=== PATIENT | female | born 1980 | race Caucasian/White ===

== ENCOUNTER 2019-06-20 17:42 | Emergency (ER) | payer BC, MEDICAID, SELFPAY ==
[2019-06-20 17:43] VITALS: BP 117/72; PULSE 82; RESP 16; TEMP 36.6; O2SAT 100
--- NOTE | 2019-06-20 17:55 | ED.GENADULT ---
HPI - General Adult General Chief complaint: Upper Respiratory Infection Stated complaint: SOB/CHEST PAIN Time Seen by Provider: 06/20/19 17:58 Source: patient and RN notes reviewed Mode of arrival: ambulatory Limitations: no limitations History of Present Illness HPI narrative: This is a 38 years old female presents to the office for an evaluation of chest pain/shortness breathe since yesterday. Chest pain is intermittent yesterday however is more constant this morning. Chest pain lasts about an hour with shortness of breath. Denies any numbness or tingling or sweating during chest pain. Stated, she was not feeling well yesterday, woke up with headache and sore throat so she called her doctor who prescribed Augmentin for her. Admits to history of anxiety when she does have panic attack she has shortness of breath and chest pain in the past; but she does not remember having any panic attack yesterday or today. Denies sick contact. Related Data Home Medications Medication Instructions Recorded Confirmed alprazolam See Rx Instructions .ROUTE .COMPLEX 02/20/19 03/05/19 amoxicillin 06/20/19 Allergies Allergy/AdvReac Type Severity Reaction Status Date / Time buspirone Allergy Unknown FUZZY Verified 06/20/19 17:46 FEELING IN BRAIN/BODY NUMB/TWITCHING/DRY HEAVES lorazepam Allergy Unknown FUZZY Verified 06/20/19 17:46 FEELING IN BRAIN/BODY NUMB/TWITCHING/DRY HEAVES Review of Systems Review of Systems: Narrative: CONSTITUTIONAL: Denies fever, chills EYES: Denies visual changes, redness, discharge. ENT: Reports sinus headache, ears pain and sore throat yesterday; but not today CARDIOVASCULAR: Denies chest pain, palpitation, edema. RESPIRATORY: Denies dyspnea, wheezing. Reports chronic cough; contributed to smoking; nothing more than usual. GASTROINTESTINAL: Denies abdominal pain, vomiting, diarrhea. Reports nasuea before she ate; which went away after she eats. GENITOURINARY: Denies urinary symptoms SKIN: Denies rash MUSCULOSKELETAL: Denies acute back pain NEUROLOGIC: Denies lightheaded; reports dizziness at times; especially when she first wake up. [facility] Past Medical History Medical History Abnormal uterine bleeding Anxiety Bronchitis Chronic sinusitis H/O gastroesophageal reflux (GERD) (normal spontaneous vaginal delivery) x 4 Scoliosis Status post hysteroscopy Tobacco abuse Surgical History Surgical History H/O foot surgery X 3 History of bilateral tubal ligation Social History Social History Smoking status: Current every day smoker Alcohol intake: current Comments At time of signature, I agree with nursing past medical, surgical, social and family history. There is no relevant family history pertinent to the presenting complaint. Exam Narrative: Exam Narrative: GENERAL: This is a well-nourished, well-developed patient, in no apparent distress. EYES: Sclera clear/white. Vision is grossly intact. EARS: External ears normal, auditory canals clear and without drainage, TMs normal without perforation. Hearing grossly intact. NOSE: External nose normal with no obvious nasal discharge, nares without redness, no rhinorrhea. THROAT: Mucous membranes moist, posterior pharynx edematous, tonsils 2+ without exudative. NECK: Neck supple, non-tender without lymphadenopathy, masses or thyromegaly. CARDIOVASCULAR: Regular rate and rhythm without murmurs, gallops, or rubs. No chest wall tenderness RESPIRATORY: Speak full sentance. Clear to auscultation. Breath sounds equal bilaterally. No wheezes, rales, or rhonchi. GASTROINTESTINAL: Abdomen soft, non-tender, nondistended. Bowel sounds are active. No hepato-splenomegaly, or palpable masses. No guarding. SKIN: warm, intact with no suspicious lesions or
--- NOTE | 2019-06-20 18:02 | ECG_ITS ---
Measurements Intervals [place] Rate: 66 P: 26 NC: 122 QRS: 52 QRSD: 115 T: 38 QT: 386 QTc: 407 Interpretive Statements SINUS RHYTHM INTRAVENTRICULAR CONDUCTION DELAY BORDERLINE ECG Electronically Signed On 06-21-2019 7:04:28 CDT by Sekou Pagan D.O.
== END 2019-06-20 18:24 | disposition home or self-care (01) ==
PROVIDERS: Emergency Provider Nurse Practitioner; PCP Family Medicine
DX: R06.02 Shortness of breath (principal); F41.9 Anxiety disorder, unspecified; F17.200 Nicotine dependence, unspecified, uncomplicated; K21.9 Gastro-esophageal reflux disease without esophagitis; M41.9 Scoliosis, unspecified
CPT/HCPCS: 93005; 99213; G0463

== ENCOUNTER 2019-09-04 13:09 | Emergency (ER) | payer BC, MEDICAID, SELFPAY ==
--- NOTE | ~2019-09-04 | XR_ITS ---
EXAMINATION: XR ankle RT min 3V DATE: 09/04/2019 13:28 INDICATION: Lateral right ankle pain post twisting injury TECHNIQUE: Anteroposterior, oblique, mortise, and lateral views of the right ankle were obtained. COMPARISON: None. FINDINGS: Bone alignment is normal. There is a chronic collapsed osteochondral lesion along the medial aspect o f the talar dome which measures approximately 1.6 cm anteroposteriorly and 8 mm medial collateral the re appears be a residual small bone fragment within the defect, likely loose in situ. No fracture. Po stoperative change of prior first tarsal metatarsal arthrodesis with residual metallic fragments like ly from previously removed fixation screws. Remaining joint spaces are unremarkable. No ankle joint e ffusion. Soft tissue swelling about the lateral malleolus. IMPRESSION: 1. No acute osseous abnormality. 2. 16 x 8 mm chronic collapsed osteochondral lesion at the medial side of the talar dome with likely residual loose in situ bone fragment. Reviewed, dictated and finalized at location A. IMPRESSION: 1. No acute osseous abnormality. 2. 16 x 8 mm chronic collapsed osteochondral lesion at the medial side of the t alar dome with likely residual loose in situ bone fragment.
[2019-09-04 13:19] VITALS: BP 110/76; PULSE 75; RESP 16; TEMP 37.3; O2SAT 100
--- NOTE | 2019-09-04 13:31 | ED.LOWEXIN ---
HPI - Extremity Injury (Lower) General Chief Complaint: Extremity Injury, Lower Stated Complaint: right ankle injury Time Seen by Provider: 09/04/19 13:32 Source: patient and RN notes reviewed Mode of arrival: ambulatory Limitations: no limitations History of Present Illness HPI Narrative: This is a 38 years old female presented office for evaluation of right ankle injury since yesterday. She accidentally invertly rolled her ankle. Complained of immediate pain with sensation of popping when she walks on it. She claimed that her daughter is a health worker who advised her to get an x-ray to rule out fracture. Denies any other injury. She has been limping. She admits to multiple bunion surgery on the same foot however denies ankle fracture in the past. Related Data Home Medications Medication Instructions Recorded Confirmed alprazolam 0.5 mg PO TID PRN 02/20/19 09/04/19 Allergies Allergy/AdvReac Type Severity Reaction Status Date / Time buspirone Allergy Unknown FUZZY Verified 09/04/19 13:27 FEELING IN BRAIN/BODY NUMB/TWITCHING/DRY HEAVES lorazepam Allergy Unknown FUZZY Verified 09/04/19 13:27 FEELING IN BRAIN/BODY NUMB/TWITCHING/DRY HEAVES Review of Systems Review of Systems: Narrative: CONSTITUTIONAL: Denies feeling ill CARDIOVASCULAR: Denies chest injury RESPIRATORY: Denies dyspnea GASTROINTESTINAL: Denies nausea SKIN: Denies bruising MUSCULOSKELETAL: Reports right ankle pain with swelling NEUROLOGIC: Denies lightheaded PMFSH Past Medical History Medical History Abnormal uterine bleeding Anxiety Bronchitis Chronic sinusitis H/O gastroesophageal reflux (GERD) (normal spontaneous vaginal delivery) x 4 Scoliosis Status post hysteroscopy Tobacco abuse Surgical History Surgical History H/O foot surgery X 3 History of bilateral tubal ligation Social History Social History Smoking status: Current every day smoker Alcohol intake: current Comments At time of signature, I agree with nursing past medical, surgical, social and family history. There is no relevant family history pertinent to the presenting complaint. Exam Narrative: Exam Narrative: GENERAL: This is a well-nourished, well-developed patient, in no apparent distress. CARDIOVASCULAR: Regular rate and rhythm without murmurs, gallops, or rubs. RESPIRATORY: Clear to auscultation. Breath sounds equal bilaterally. No wheezes, rales, or rhonchi. NEURO: awake, alert, and oriented to person, place and time. There were no obvious focal neurologic abnormalities. EXTREMITIES: The right ankle is swollen and tender over the lateral aspect but the skin is intact and there is no ligamentous instability. There is no deformity. The foot and toes are warm and well-perfused. Sensation to pain and light touch is intact. Heal surgical scar noted on dorsal aspect of first metartarsal bone. Course Vital Signs Vital signs: Vital Signs Temperature 99.2 F 09/04/19 13:19 Pulse Rate 75 09/04/19 13:19 Respiratory Rate 16 09/04/19 13:19 Blood Pressure 110/76 09/04/19 13:19 Pulse Oximetry 100 09/04/19 13:19 Temperature 99.2 F 09/04/19 13:19 Pulse Rate 75 09/04/19 13:19 Respiratory Rate 16 09/04/19 13:19 Blood Pressure 110/76 09/04/19 13:19 Pulse Oximetry 100 09/04/19 13:19 MDM - Extremity Injury (Lower) MDM Narrative Medical decision making narrative: Discharge instructions reviewed with patient, as well as provided in writing per nursing staff. The instructions also include specific and strict return/GO TO THE ER as well as f/u information. All questions have been answered, and the patient* deny any further questions with discharge and discharge plan. Differential Diagnosis Differential diagnosis: L
== END 2019-09-04 13:55 | disposition home or self-care (01) ==
PROVIDERS: Emergency Provider Nurse Practitioner; PCP Family Medicine
DX: S93.401A Sprain of unspecified ligament of right ankle, initial encounter (principal); F41.9 Anxiety disorder, unspecified; K21.9 Gastro-esophageal reflux disease without esophagitis; F17.200 Nicotine dependence, unspecified, uncomplicated; X50.9XXA Other and unspecified overexertion or strenuous movements or postures, initial encounter
CPT/HCPCS: 73610; 99213; G0463

== ENCOUNTER 2019-12-12 15:07 | Outpatient (CLI) | payer BC, MEDICAID, SELFPAY ==
--- NOTE | ~2019-12-12 | US_ITS ---
EXAMINATION: US pelvic complete w TV DATE: 12/12/2019 15:45 INDICATION: Pelvic pain Comparison:No prior studies for comparison. TECHNIQUE: Multiple transabdominal and endovaginal sonographic images of the pelvis performed. FINDINGS: The uterus measures 9 x 4.3 x 5.8 cm. There is fluid in the endometrium. The endometrial co mplex measures 7 mm. The right ovary measures 1.5 x 1.4 x 1.1 cm. Left ovary not visualized. There are small follicles in each ovary. There is free fluid in the pelvis. There are no abnormal masses seen on either side. IMPRESSION: 1. Heterogeneous endometrium with small amount of fluid, although not significantly thickened. 2: Otherwise, unremarkable pelvic ultrasound. Reviewed, dictated and finalized at location B. IMPRESSION: 1. Heterogeneous endometrium with small amount of fluid, although not significa ntly thickened. 2: Otherwise, unremarkable pelvic ultrasound.
== END 2019-12-12 15:08 | disposition home or self-care (01) ==
PROVIDERS: PCP Family Medicine; Visit Provider Obstetrics & Gynecology
DX: R10.2 Pelvic and perineal pain (principal)
CPT/HCPCS: 76830; 76856

== ENCOUNTER 2020-01-23 14:22 | Emergency (ER) | payer MEDICAID, SELFPAY ==
--- NOTE | ~2020-01-23 | CT_ITS ---
EXAMINATION: CT abdomen pelvis w con DATE: 01/23/2020 15:39 INDICATION: Generalized abdominal pain. TECHNIQUE: Computed tomography (CT) of the abdomen and pelvis was performed with 100 mL Omnipaque 350 intravenous contrast. Automated exposure control and iterative reconstruction technique were employe d. The dose-length product was 209.35 mGy-cm. COMPARISON: CT abdomen and pelvis 11/06/2015 FINDINGS: The visualized portions of the lung bases demonstrate mild atelectasis. No pleural effusion . The heart size is normal. No pericardial effusion. The liver, gallbladder, pancreas, and adrenal gl ands are normal. Calcifications in the spleen are consistent with old granulomatous disease. Right ki dney is normal. There are cysts in left kidney measuring up to 8 mm. There are no dilated loops of johnathon wel. The appendix is normal. There are no pathologically enlarged lymph nodes. There is trace pelvic ascites. There is mild thoracic spondylosis. IMPRESSION: 1. No specific etiology for the patient's symptoms. Reviewed, dictated and finalized at location A.
[2020-01-23 14:34] VITALS: BP 115/62; PULSE 86; RESP 16; TEMP 36.4; O2SAT 100
--- NOTE | 2020-01-23 14:42 | ED.ABDPAIN ---
HPI - Abdominal Pain General Chief Complaint: Abdominal Pain Stated Complaint: Abd Pain, poss ovarian cysts Time Seen by Provider: 01/23/20 14:29 Source: patient and family Mode of arrival: ambulatory Limitations: no limitations History of Present Illness HPI narrative: 39 years old white female presents with lower abdominal pain like contraction started 5 days ago, Patient denies any aggravating or relieving factors. Patient denies any fever, chills, nausea, vomiting, diarrhea, constipation, urinary symptoms, vaginal bleeding or discharge. History of drug addiction, IBS, ovarian cyst. Patient taking Xanax for chronic anxiety, Patient smokes, denies drinking or using drugs. Related Data Home Medications Medication Instructions Recorded Confirmed alprazolam 0.5 mg PO TID PRN 02/20/19 09/25/19 Allergies Allergy/AdvReac Type Severity Reaction Status Date / Time buspirone Allergy Unknown FUZZY Verified 09/25/19 11:20 FEELING IN BRAIN/BODY NUMB/TWITCHING/DRY HEAVES lorazepam Allergy Unknown FUZZY Verified 09/25/19 11:20 FEELING IN BRAIN/BODY NUMB/TWITCHING/DRY HEAVES Review of Systems Review of Systems: Narrative: CONSTITUTIONAL: Denies fever, chills, or sweats. EYES: Denies visual changes, redness, or discharge. ENT: Denies rhinorrhea, congestion, sore throat, or otalgia. CARDIOVASCULAR: Denies chest pain, palpitations, or edema. RESPIRATORY: Denies cough or dyspnea. GASTROINTESTINAL: Denies abdominal pain, nausea, vomiting, or diarrhea. GENITOURINARY: Denies dysuria or hematuria. SKIN: Denies rash or itching. MUSCULOSKELETAL: Denies back pain, joint pain, or myalgia. NEUROLOGIC: Denies headache, numbness, or weakness. PSYCHIATRIC: Denies anxiety or depression. [facility] Past Medical History Medical History (Updated 01/23/20 @ 16:43 by Melony Hsu MD) Abnormal uterine bleeding Ankle sprain Anxiety Bronchitis Chronic sinusitis H/O gastroesophageal reflux (GERD) (normal spontaneous vaginal delivery) x 4 Right ankle pain Scoliosis Status post hysteroscopy Tobacco abuse Surgical History Surgical History H/O foot surgery X 3 History of bilateral tubal ligation Social History Social History Smoking status: Current every day smoker Alcohol intake: current Gender identity (if verbalized by the patient): Female Exam Narrative: Exam Narrative: General appearance: Well-developed, well-nourished Skin: Normal color Head: Normocephalic, nontraumatic Eyes: Clear conjunctiva ENT: Oropharynx normal, ears normal, nose normal Neck: Supple, nontender Chest and respiratory: Airway patent, no respiratory distress, no accessory muscle use Heart: Regular rate/rhythm Abdomen: Soft, severe tenderness lower abdomen bilaterally, no organomegaly, quiet bowel sounds Vascular: Normal peripheral pulses, normal capillary refill. Musculoskeletal: Normal range of motion, nontender back Neurologic: Alert and oriented ?3, DCS ENGINEER is normal as tested, no gross motor deficit Course Course Emergency Course: Stable Reevaluation(s) Reevaluation #1: Patient still needs that she is planning to see Dr. Ohara tomorrow. Patient is not happy about her abdominal pain without a specific diagnosis. Vital Signs Vital signs: Vital Signs Temperature 36.4 C 01/23/20 14:34 Pulse Rate 86 01/23/20 14:34 Respiratory Rate 16 01/23/20 14:34 Blood Pressure 115/62 01/23/20 14:34 Pulse Oximetry 100 01/23/20 14:34 Temperature 36.4 C 01/23/20 14:34 Pulse Rate 86 01/23/20 14:34 Respiratory Rate
[2020-01-23] MEDS: SODIUM CHLORIDE 0.9% IV 1,000 ML 999 ML IV CONT (14:46)
[2020-01-23 14:58] LABS: Basophils Absolute Auto 0.1 K/mm3 (0.0-0.1); Basophils Percent Auto 0.3 % (0.2-1.2); Eosinophils Percent Auto 0.1 % (0-4.4); Hematocrit 43.9 % (37.0-47.0); Hemoglobin 15.1 g/dL (12.0-15.0); Immature Granulocyte Absolute 0.07 K/mm3 (0.00-0.031); Immature Granulocyte Percent A 0.4 % (0-0.5); Lymphocytes Absolute Auto 2.21 K/mm3 (0.9-3.2); Lymphocytes Percent Auto 13.4 % (18.3-44.2); Mean Corpuscular HGB Conc 34.4 g/dl (32-36); Mean Corpuscular Hemoglobin 33.8 pg (26-34); Mean Corpuscular Volume 98.2 fl (80-100); Mean Platelet Volume 9.2 fl (7.4-10.4); Monocytes Absolute Auto 0.6 K/mm3 (0.1-0.6); Monocytes Percent Auto 3.4 % (2.6-8.5); Neutrophils Absolute Auto 13.6 K/mm3 (1.3-6.7); Neutrophils Percent Auto 82.4 % (45.5-73.1); Platelet Count Result 276 k/mm3 (150-375); Red Blood Count 4.47 M/mm3 (4.2-5.4); Red Cell Distribution Width 12.4 % (11.5-14.5); White Blood Count 16.5 K/mm3 (4.5-10.0)
[2020-01-23 15:05] LABS: Add Urine Microscopic? YES; Appearance Urine Clear (Clear); Bacteria Urine Trace /hpf; Bilirubin Urine Negative (Negative); Blood Urine Negative (Negative); Color Urine Yellow (Yellow); Glucose Urine UA Negative (Negative); Ketones Urine Negative (Negative); Leukocyte Esterase Ur 1+ LEU/UL (Negative); Mucus Urine Rare /lpf; Nitrate Urine Negative (Negative); Protein Urine Negative (Negative); RBC Urine 0-2 /hpf (0-2); Specific Grav Ur 1.012 (1.001-1.035); Squamous Epithelial Cell Urine Many /hpf (Few); Urobilinogen Urine Negative mg/dL (<2.0); WBC Urine 0-3 /hpf
[2020-01-23 15:09] LABS: Alanine Aminotransferase 16 U/L (4-35); Albumin Level 4.3 g/dL (3.5-5.1); Alkaline Phosphatase 61 U/L (38-126); Anion Gap 8 mmol/L (8-16); Aspartate Amino Transferase 26 U/L (14-36); Bilirubin,Total 0.5 mg/dL (0.2-1.3); Blood Urea Nitrogen 16 mg/dL (7-17); Calcium 9.1 mg/dL (8.4-10.2); Carbon Dioxide 26 mmol/L (22-30); Chloride 106 mmol/L (98-107); Estimated CRCL calculation 88 ml/min; Estimated Glomerular Filt Rate > 60; Glucose 83 mg/dL (65-105); Lipase 127 U/L (23-300); Potassium 3.1 mmol/L (3.4-5.0); Sodium 140 mmol/L (137-145)
== END 2020-01-23 17:03 | disposition home or self-care (01) ==
PROVIDERS: Emergency Provider Emergency Medicine; PCP Family Medicine
DX: R10.30 Lower abdominal pain, unspecified (principal); F41.9 Anxiety disorder, unspecified
CPT/HCPCS: 36415; 74177; 80053; 81001; 81025; 83690; 85025; 99284; J7030; Q9967

== ENCOUNTER 2020-05-01 08:47 | Emergency (ER) | payer OTHER, SELFPAY ==
[2020-05-01 08:59] VITALS: BP 131/88; PULSE 97; RESP 17; TEMP 36.5; O2SAT 100
[2020-05-01 09:20] LABS: Basophils Percent Auto 0.3 % (0.2-1.2); Eosinophils Percent Auto 0.3 % (0-4.4); Hematocrit 42.1 % (37.0-47.0); Hemoglobin 14.7 g/dL (12.0-15.0); Immature Granulocyte Absolute 0.05 K/mm3 (0.00-0.031); Immature Granulocyte Percent A 0.4 % (0-0.5); Lymphocytes Absolute Auto 2.77 K/mm3 (0.9-3.2); Lymphocytes Percent Auto 23.7 % (18.3-44.2); Mean Corpuscular HGB Conc 34.9 g/dl (32-36); Mean Corpuscular Hemoglobin 33.6 pg (26-34); Mean Corpuscular Volume 96.1 fl (80-100); Mean Platelet Volume 9.2 fl (7.4-10.4); Monocytes Absolute Auto 0.6 K/mm3 (0.1-0.6); Neutrophils Absolute Auto 8.2 K/mm3 (1.3-6.7); Neutrophils Percent Auto 70.3 % (45.5-73.1); Platelet Count Result 296 k/mm3 (150-375); Red Blood Count 4.38 M/mm3 (4.2-5.4); Red Cell Distribution Width 12.2 % (11.5-14.5); White Blood Count 11.7 K/mm3 (4.5-10.0)
[2020-05-01 09:33] LABS: Alanine Aminotransferase 15 U/L (4-35); Albumin Level 4.2 g/dL (3.5-5.1); Alkaline Phosphatase 56 U/L (38-126); Anion Gap 6 mmol/L (8-16); Aspartate Amino Transferase 24 U/L (14-36); Bilirubin,Total 0.7 mg/dL (0.2-1.3); Blood Urea Nitrogen 15 mg/dL (7-17); Carbon Dioxide 25 mmol/L (22-30); Chloride 106 mmol/L (98-107); Estimated CRCL calculation 74 ml/min; Estimated Glomerular Filt Rate > 60; Glucose 85 mg/dL (65-105); Lipase 78 U/L (23-300); Potassium 3.9 mmol/L (3.4-5.0); Sodium 137 mmol/L (137-145)
[2020-05-01] MEDS: SODIUM CHLORIDE 0.9% IV 1,000 ML 999 ML IV CONT (09:50)
[2020-05-01 09:52] LABS: Add Urine Microscopic? NO; Appearance Urine Clear (Clear); Bilirubin Urine Negative (Negative); Blood Urine Negative (Negative); Color Urine Yellow (Yellow); Glucose Urine UA Negative (Negative); Ketones Urine Negative (Negative); Leukocyte Esterase Ur Negative LEU/UL (Negative); Mucus Urine Rare /lpf; Nitrate Urine Negative (Negative); Protein Urine Negative (Negative); RBC Urine 0-2 /hpf (0-2); Specific Grav Ur 1.009 (1.001-1.035); Squamous Epithelial Cell Urine Few /hpf (Few); Urobilinogen Urine Negative mg/dL (<2.0); WBC Urine 0-3 /hpf
--- NOTE | 2020-05-01 09:54 | ED.ABDPAIN ---
HPI - Abdominal Pain General Chief Complaint: Abdominal Pain Stated Complaint: ABD Pain/Cramping Time Seen by Provider: 05/01/20 09:05 Source: patient, family, old records reviewed and other (Cosmetic Sales Assistant) Mode of arrival: ambulatory Limitations: no limitations History of Present Illness HPI narrative: Patient is a 39-year-old female who presents with uterine cramping patient has had the symptoms since having a D&C in February 2019 has been followed by Dr. Ohara for this was advised to have partial hysterectomy opted not to. Patient has had intermittent bouts of cramping sometimes the cramping lasts for less than a day other times it can last up to a week patient notes that this exacerbation is similar to others patient on arrival to emergency department does not appear distressed but is uncomfortable appearing patient denies vomiting diarrhea vaginal bleeding discharge urinary symptoms. Patient is accompanied by her . Patient has taken ibuprofen with no improvement. Patient has seen Dr. Ohara for this has had unremarkable ultrasound has also been seen in the emergency department for this the last of which was December of this year had negative CAT scan of the abdomen and pelvis. Related Data Home Medications Medication Instructions Recorded Confirmed alprazolam 0.5 mg PO TID PRN 02/20/19 09/25/19 Allergies Allergy/AdvReac Type Severity Reaction Status Date / Time buspirone Allergy Unknown FUZZY Verified 05/01/20 08:59 FEELING IN BRAIN/BODY NUMB/TWITCHING/DRY HEAVES lorazepam Allergy Unknown FUZZY Verified 05/01/20 08:59 FEELING IN BRAIN/BODY NUMB/TWITCHING/DRY HEAVES Review of Systems Review of Systems: All systems reviewed & are unremarkable except as noted in HPI and below PMFSH Past Medical History Medical History (Updated 05/01/20 @ 10:52 by Dylon Valderrama PA-C) Abnormal uterine bleeding Ankle sprain Anxiety Bronchitis Chronic sinusitis H/O gastroesophageal reflux (GERD) (normal spontaneous vaginal delivery) x 4 Right ankle pain Scoliosis Status post hysteroscopy Tobacco abuse Surgical History Surgical History H/O foot surgery X 3 History of bilateral tubal ligation Social History Social History Smoking status: Current every day smoker Alcohol intake: current Gender identity (if verbalized by the patient): Female Exam Narrative: Exam Narrative: GENERAL: Well-appearing, well-nourished, uncomfortable and in no acute distress. HEAD: Normocephalic, atraumatic. EYES: PERRLA and EOMI. ENT: Nares clear, no rhinorrhea or epistaxis. Mucous membranes moist. CHEST: Clear to auscultation. No respiratory distress. No wheezes rales or rhonchi HEART: Regular rate and rhythm. No murmur heard. Normal peripheral pulses. ABDOMEN: Soft, tenderness in the lower quadrants of the abdomen, nondistended EXTREMITIES: Normal range of motion. No edema. SKIN: Warm, dry, no rash. NEURO: No focal deficits. Alert and oriented x3. PSYCH: Normal mood and affect. Course Course Emergency Course: Patient was evaluated in the emergency department for what is described as chronic uterine contractions at this point patient is requesting to have hysterectomy patient had called her jury consultant this morning was instructed to come to emergency department patient on arrival was uncomfortable was evaluated was given medications for pain patient had some improvement patient was advised to continue to follow with her specialist is aware of the recommendations and discussion with the specialist patient agrees with this plan patient will be discharged home for further evaluation and reevaluation by her jury consultant Dr. Ohara patient was hydrated and given medications for pain in the emergency department. Consultations Consultation #1: Discussed case with
[2020-05-01] MEDS: MORPHINE SULFATE (*CRX) 4 MG/ML INJ IV PUSH (10:00)
[2020-05-01 10:36] VITALS: BP 128/89; PULSE 88; RESP 15; O2SAT 97
[2020-05-01 11:10] VITALS: BP 106/67; PULSE 69; RESP 18; O2SAT 100
== END 2020-05-01 11:11 | disposition home or self-care (01) ==
PROVIDERS: Emergency Provider Emergency Medicine; PCP Family Medicine
DX: R10.9 Unspecified abdominal pain (principal); F17.210 Nicotine dependence, cigarettes, uncomplicated; K21.9 Gastro-esophageal reflux disease without esophagitis; F41.9 Anxiety disorder, unspecified
CPT/HCPCS: 36415; 80053; 81003; 83690; 85025; 96361; 96374; 99284; J2270; J7030

== ENCOUNTER → 2020-05-30 01:53 | Outpatient (CLI) | payer OTHER, SELFPAY ==
[2020-05-31 08:28] LABS: SARS-CoV-2 RNA PCR Negative
== END ==
PROVIDERS: PCP Family Medicine; Visit Provider Obstetrics & Gynecology Gynecology
DX: Z01.812 Encounter for preprocedural laboratory examination (principal); Z20.822 Contact with and (suspected) exposure to COVID-19
CPT/HCPCS: 86850; 86900; 86901; C9803; U0003; U0005

== ENCOUNTER 2020-05-30 07:39 | Outpatient (CLI) | payer OTHER, SELFPAY | END 2020-05-30 07:40 | disposition home or self-care (01) | PROVIDERS: PCP Family Medicine; Visit Provider Obstetrics & Gynecology Gynecology | DX: G89.29 Other chronic pain (principal); R10.2 Pelvic and perineal pain; Z01.818 Encounter for other preprocedural examination | CPT/HCPCS: 36415; 86850; 86900; 86901 ==

== ENCOUNTER 2020-06-02 01:21 | Day surgery (SDC) | payer OTHER, SELFPAY ==
[2020-05-27 08:17] VITALS: BMI 21.7
[2020-06-02] VITALS (13 sets, daily range): BP systolic 101–116; BP diastolic 62–78; PULSE 64–87; RESP 10–24; TEMP 36.2–37.1; O2SAT 99–100
[2020-06-02] MEDS: ACETAMINOPHEN 500 MG TABLET 1000 MG PO (06:45)
[2020-06-02] MEDS: KETOROLAC 15 MG/ML VIAL (*BKC) IV PUSH (06:45)
--- NOTE | 2020-06-02 06:47 | WPDANESEPPF ---
Anes - Initial Pre Proc Eval Procedure: Operation Date: 06/02/20 07:30 Proposed Procedures p Total Vaginal Hysterectomy - Magali Ohara MD Date/Time: 06/02/20 06:47 Surgeon: Magali Ohara MD Pre Op Diagnosis: Post Ablation Pain Patient Data Age: 39 Gender: F Height: 1.57 m Weight: 54 kg Allergies Allergy/AdvReac Type Severity Reaction Status Date / Time buspirone AdvReac Intermediate FUZZY Verified 05/27/20 08:16 FEELING IN BRAIN/BODY NUMB/TWITCHING/DRY HEAVES lorazepam AdvReac Intermediate FUZZY Verified 05/27/20 08:16 FEELING IN BRAIN/BODY NUMB/TWITCHING/DRY HEAVES Home Medications Medication Instructions Recorded Confirmed Type alprazolam 0.5 mg PO TID PRN 02/20/19 05/27/20 History ibuprofen 200 mg PO Q6H PRN 05/27/20 05/27/20 History Patient hx anesthesia problems: none Family hx anesthesia problems: none [facility] Past Medical History Medical History (Updated 05/02/20 @ 00:00 by Milvia Chapa) Abnormal uterine bleeding Ankle sprain Anxiety Bronchitis Chronic sinusitis H/O gastroesophageal reflux (GERD) (normal spontaneous vaginal delivery) x 4 Right ankle pain Scoliosis Status post hysteroscopy Tobacco abuse Surgical History Surgical History H/O foot surgery X 3 History of bilateral tubal ligation Social History Social History Smoking packs per day: 1 Smoking cigarettes per day: 20.0 Years smoked: 24 Smoking pack-years: 24.00 Smoking status: Current every day smoker Tobacco type: cigarettes Alcohol intake: current Living arrangements: with family Gender identity (if verbalized by the patient): Female Spiritual care concerns: No Anes - Eval Final PreProcedure Day of Procedure 06/02/20 06:47 Patient weight: overweight Heart: regular rate and rhythm Lungs: clear to auscultation and normal air movement Airway: Mallampati scale class II Neurological: alert and oriented Last oral intake: >/= 8 hours ASA classification: II Emergent: no Anesthetic plan: proceed Anesthesia type and monitoring: general ETT Informed Consent: The patient's anesthetic plan and its attendant risks and benefits were discussed with the patient/family/POA. Questions were solicited and answers provided to the satisfaction of the patient/family/POA.
[2020-06-02] MEDS: LACTATED RINGERS 1,000 ML 30 ML IV CONT ×2 (06:50→08:40)
--- NOTE | 2020-06-02 07:11 | WPDHPUPDATE1 ---
History and Physical Update Update Date/Time: 06/02/20 07:11 History and Physical has been reviewed, including an updated exam of the patient. There are NO changes in the patient's condition. Risks, benefits, and alternatives have been discussed and questions answered. Patient agrees to proceed with procedure.
--- NOTE | 2020-06-02 07:12 | PM.IMHP ---
H&P: HPI History of Present Illness Date/Time: 06/02/20 07:12 Chief Complaint: cyclic pelvic pain Narrative: Khadra Carvajal is a 39 year old female A1 here with persistent severe cyclic pain post ablation. Patient with Melanie ablation 03/15. Onset of severe cyclic pain shortly after. She has been to the ER several times as well as the office. Ultrasound showed fluid in the endometrium with lining up to 7 mm yet she has had no bleeding since ablation. Reviewed options with patient and she has decided to proceed with hysterectomy. Plan TV[facility]. Risks of infection, bleeding, injury to internal organs (alexander. bladder, bowel, ureters, tubes, and ovaries)reviewed. Aware this will be under general anesthesia. Agrees to proceed. Review of Systems Review of Systems: Narrative: not repeated day of surgery; patient states no changes in status PMFSH Past Medical History Medical History (Updated 06/02/20 @ 07:16 by Magali Ohara MD) Abnormal uterine bleeding Ankle sprain Anxiety Bronchitis Chronic sinusitis H/O gastroesophageal reflux (GERD) (normal spontaneous vaginal delivery) x 4 Right ankle pain Scoliosis Status post hysteroscopy Tobacco abuse Surgical History Surgical History (Updated 06/02/20 @ 07:16 by Magali Ohara MD) H/O foot surgery X 3 History of bilateral tubal ligation S/P endometrial ablation Social History Social History Smoking packs per day: 1 Smoking cigarettes per day: 20.0 Years smoked: 24 Smoking pack-years: 24.00 Smoking status: Current every day smoker Tobacco type: cigarettes Alcohol intake: current Living arrangements: with family Gender identity (if verbalized by the patient): Female Spiritual care concerns: No Meds Home Medications and Allergies Home Medications Medication Instructions Recorded Confirmed Type alprazolam 0.5 mg PO TID PRN 02/20/19 05/27/20 History ibuprofen 200 mg PO Q6H PRN 05/27/20 05/27/20 History Allergies Allergy/AdvReac Type Severity Reaction Status Date / Time buspirone AdvReac Intermediate FUZZY Verified 05/27/20 08:16 FEELING IN BRAIN/BODY NUMB/TWITCHING/DRY HEAVES lorazepam AdvReac Intermediate FUZZY Verified 05/27/20 08:16 FEELING IN BRAIN/BODY NUMB/TWITCHING/DRY HEAVES Exam Const: General: healthy appearing and comfortable Resp: Effort & Inspection: normal respiratory effort Auscultation: clear to auscultation bilaterally Cardio: Rate: regular rate Rhythm: regular rhythm GI: GI Palp: No abdominal tenderness and No Palpable mass present : External Female Exam: normal external appearance Speculum Exam - Vagina: normal appearance of the vagina Speculum Exam - Cervix: normal appearance of the cervix Bimanual exam- vagina & uterus: normal bimanual exam Assessment and Plan Assessment and plan (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
[2020-06-02] MEDS: ceFAZolin 2 GM/D5W 50 ML 2 GM/50 ML BAG IVPB (07:25)
[2020-06-02] MEDS: LIDO 1%/EPINEPHRINE 1:100,000 50 ML VIAL 10 ML INFILTRATE (07:25)
--- NOTE | 2020-06-02 08:32 | PM.PROC ---
Procedure Note - Detailed Date of procedure: 06/02/20 Pre-op diagnosis: Post Ablation Pain Post-op diagnosis: same Procedure performed: TV Description of procedure: The patient was taken to the operating room and placed in the dorsal lithotomy position under general anesthesia. She was prepped and draped in usual sterile fashion. Short weighted speculum was placed posteriorly and Jc retractor was placed anteriorly. The cervix was grasped with a tenaculum and the vaginal mucosa was injected circumferentially around the cervix. The scalpel was used to circumferentially incise the vaginal mucosa around the cervix. The vaginal mucosa was dissected off anteriorly and posteriorly using sharp and blunt dissection. The Mike retractors placed intraperitoneally and the posterior speculum was changed to the long curved weighted speculum. The Z clamps are used throughout the procedure. The uterosacral and cardinal ligaments were serially clamped transected and suture ligated with 0 Vicryl. They were tagged for future use. The uterine vessels are clamped transected and suture ligated. The posterior fundus is grasped with piercing towel clamps and delivered through the cul-de-sac. The utero-ovarian ligaments are doubly clamped transected and suture ligated with 0 Vicryl the tubal portion of the ligament was not included in the clamps therefore these were separately clamped transected and suture ligated with 0 Vicryl. The uterus is fully removed. All pedicles had good hemostasis. The peritoneum was grasped anteriorly with a peon and the peritoneum was grasped posteriorly with a peon after the posterior speculum was changed to the short weighted speculum. The peritoneum was closed using 0 Ethibond in a pursestring fashion incorporating the previously tagged uterosacral and cardinal ligaments as well as the anterior and posterior peritoneum. Good hemostasis is noted and all tags were cut out. The vaginal mucosa is then closed using 0 Vicryl in a running locked fashion. Packing coated with Premarin cream is placed vaginally. Wyatt was left in place. Sponge, instrument, and needle counts are correct per the OR staff. The patient is awakened from anesthesia and taken to recovery in stable condition. Anesthesia: GETA Surgeon: Magali Ohara MD Estimated blood loss (mL): 25 Drains: Yes (ywatt) Packing: Yes (vaginal) Pathology: yes (uterus) Complications: No immediate complications Condition: stable Disposition: PACU Findings: normal appearing uterus, tubes, and ovaries
--- NOTE | 2020-06-02 08:37 | PM.DS ---
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 Status: Acute (2) History of total vaginal hysterectomy (TVH): Code(s): Z90.710 - Acquired absence of both cervix and uterus Status: Acute DS: Summary Hospital Course Reason for hospitalization: post op care Hospital Course: tolerating regular diet, voiding, and ambulating before discharge Status at Discharge Functional status at discharge: independent ambulation Overall status at discharge: patient is progressing back to baseline Time Spent with Patient Time attestation: Total time spent providing and/or coordinating discharge services: DS: Data Data Completed and Pending Pending studies at discharge: Pending at discharge 06/02/20 08:18 Surgical [PTH] Routine Discharge Plan Discharge Attending physician on discharge: Magali Ohara Discharging Clinician: Magali Ohara Anticipated Discharge Date/Time: 06/03/20 07:42 Patient Disposition: Home, Self-Care Activity: may shower, may drive after 2 weeks and pelvic rest Diet: regular Discharge Instructions: pelvic rest for 6 weeks, no driving x 2 wks, no lifting >10 pounds Patient Instructions: Vaginal Hysterectomy (DC) Stand Alone Forms: General Discharge Instructions Follow-up/Referrals: Magali Ohara MD [Physician] - 1 Week Discharge Medications: Continued alprazolam 0.5 mg tablet 0.5 mg PO TID PRN (Reason: Anxiety) RF: 0 Changed ibuprofen 200 mg Tablet 600 mg PO Q6H PRN (Reason: Pain) Qty: 0 RF: 0 Date of admission: 06/02/20 09:44 Primary Care Provider: JohnBrittany Admitting Provider: Magali Ohara Attending physician on admission: Magali Ohara Condition: Stable
[2020-06-02] MEDS: fentaNYL CITRATE INJ (*CRX) 100 MCG/2 ML VIAL 25 MCG IV PUSH ×6 (08:50→09:13)
[2020-06-02] MEDS: MIDAZOLAM HCL (*CRX) 2 MG/2 ML VIAL IV PUSH ×2 (08:50→09:06)
[2020-06-02] MEDS: MORPHINE SULFATE (*CRX) 2 MG/ML INJ IV PUSH ×2 (10:27→14:56)
[2020-06-02] MEDS: DEXTROSE 5%/LACTATED RINGERS 1,000 ML 125 ML IV CONT ×2 (10:28→19:52)
--- NOTE | 2020-06-02 11:46 | PC.NURSE ---
0948-This patient, Khadra Carvajal, was admitted to OB 2nd Floor Room 289-00. Patient/family oriented to hospital policies and general routines including ID bracelet, bed and alarms, visiting hours, pain management, procedures, bathroom and other care routines, personal items, smoking policy, room service/diet, and visiting hours. Information on how to activate the Rapid Response Team has been discussed. Patient/Family are encouraged to report perceived risks to care and to ask questions if they do not understand what they are told or what they should do.
[2020-06-02] MEDS: ONDANSETRON INJ 4 MG/2 ML VIAL IV PUSH (13:35)
[2020-06-02] MEDS: KETOROLAC 30 MG/ML VIAL (*BKC) IV PUSH ×3 (13:35→19:58)
[2020-06-03 05:10] VITALS: BP 101/67; PULSE 65; RESP 16; TEMP 36.9; O2SAT 99
[2020-06-03 05:40] LABS: Basophils Percent Auto 0.2 % (0.2-1.2); Eosinophils Absolute Auto 0.1 K/mm3 (0-0.3); Eosinophils Percent Auto 0.5 % (0-4.4); Hematocrit 34.2 % (37.0-47.0); Hemoglobin 11.6 g/dL (12.0-15.0); Immature Granulocyte Absolute 0.05 K/mm3 (0.00-0.031); Immature Granulocyte Percent A 0.4 % (0-0.5); Lymphocytes Absolute Auto 3.99 K/mm3 (0.9-3.2); Lymphocytes Percent Auto 32.6 % (18.3-44.2); Mean Corpuscular HGB Conc 33.9 g/dl (32-36); Mean Corpuscular Hemoglobin 33.4 pg (26-34); Mean Corpuscular Volume 98.6 fl (80-100); Mean Platelet Volume 9.3 fl (7.4-10.4); Monocytes Absolute Auto 0.8 K/mm3 (0.1-0.6); Monocytes Percent Auto 6.1 % (2.6-8.5); Neutrophils Absolute Auto 7.4 K/mm3 (1.3-6.7); Neutrophils Percent Auto 60.2 % (45.5-73.1); Platelet Count Result 188 k/mm3 (150-375); Red Blood Count 3.47 M/mm3 (4.2-5.4); Red Cell Distribution Width 12.3 % (11.5-14.5); White Blood Count 12.3 K/mm3 (4.5-10.0)
--- NOTE | 2020-06-03 07:40 | PM.GYNPNOP ---
SOLE POLISHER - A/P Assessment and plan (1) History of total vaginal hysterectomy (TVH): Code(s): Z90.710 - Acquired absence of both cervix and uterus Status: Acute Assessment and Plan: Doing well. DC home. OK with motrin and tylenol. Postoperative Procedures: Procedures Operation Date: 06/02/20 07:30 Actual Procedures Side Surgeon p Total Vaginal Hysterectomy Not Applicable Magali Ohara MD Time Spent With Patient Time: Total time spent is greater than 50% in coordination of care (as documented) at patient's floor/unit and/or counseling patient: Time with patient: less than 15 minutes SOLE POLISHER- PN:Subj Post-Op Subjective Date/time seen: 06/03/20 07:40 Subjective: patient reports feeling better and pain is well controlled Exam GI: Inspection: normal to inspection GI Palp: Yes abdominal tenderness (mild) SOLE POLISHER - PN: Obj Data Vital Signs Vital Signs: Vital Signs - 24 hr 06/02/20 08:40 06/02/20 08:55 06/02/20 09:10 Temperature 97.8 F Pulse Rate 87 84 79 Respiratory Rate 15 18 15 Blood Pressure 106/78 109/72 113/73 Pulse Oximetry 100 100 100 06/02/20 09:25 06/02/20 10:15 06/02/20 10:50 Temperature 97.1 F L Pulse Rate 83 71 69 Respiratory Rate 10 L 24 H 24 H Blood Pressure 106/72 105/63 110/70 Pulse Oximetry 100 100 100 06/02/20 11:53 06/02/20 12:48 06/02/20 13:18 Temperature 98.3 F 97.8 F 98.7 F Pulse Rate 75 Respiratory Rate 24 H Blood Pressure 105/68 Pulse Oximetry 100 06/02/20 14:15 06/02/20 19:50 06/02/20 23:45 Temperature 97.8 F 98.3 F 98.5 F Pulse Rate 70 65 64 Respiratory Rate 20 16 16 Blood Pressure 112/65 101/62 105/65 Pulse Oximetry 100 100 99 06/03/20 05:10 Temperature 98.4 F Pulse Rate 65 Respiratory Rate 16 Blood Pressure 101/67 Pulse Oximetry 99 Intake/Output Intake/Output: Intake & Output 05/31/20 06/01/20 06/02/20 06/03/20 23:59 23:59 23:59 23:59 Intake Total 1940 500 Output Total 1900 600 Balance 40 -100 Meds/Results Medications: Active Medications Generic Name Dose Route Start Last Admin Trade Name Freq PRN Reason Stop Dose Admin Acetaminophen 1,000 mg 06/02/20 09:44 Acetaminophen 500 Mg Tablet PO Q6H PRN Mild Pain (1-3) or Fever Acetaminophen 1,000 mg in 100 mls @ 400 mls/hr 06/02/20 09:44 06/02/20 12:48 Ofirmev 1,000 Mg Ivpb IVPB 06/03/20 09:45 400 mls/hr Q6-8H PRN Administration pain (1-3) Ibuprofen 600 mg 06/02/20 09:44 Ibuprofen 600 Mg Tablet PO Q6H PRN Cramping Ketorolac Tromethamine 30 mg 06/02/20 09:44 06/02/20 19:58 Ketorolac 30 Mg/Ml Vial (*Bkc) IV PUSH 06/07/20 09:45 30 mg Q6H PRN Administration Pain Rated 4-6 Morphine Sulfate 2 mg 06/02/20 10:08 06/02/20 14:56 Morphine Sulfate (*Crx) 2 Mg/Ml Inj IV PUSH 2 mg Q2H PRN Administration Pain Rated 7-10 Naloxone HCl 0.1 mg 06/02/20 09:44 Naloxone Hcl 0.4 Mg/Ml Vial IV PUSH Q2M PRN Respiratory rate less than 10 Ondansetron HCl 4 mg 06/02/20 09:44 06/02/20 13:35 Ondansetron Inj 4 Mg/2 Ml Vial IV PUSH 4 mg Q6H PRN Administration Nausea And Vomiting Simethicone 80 mg 06/02/20 09:44 Simethicone 80 Mg Tab.Chew PO Q2H PRN Gas Labs CBC & Chem 7: 06/03/20 05:14 Labs: Laboratory Results - last 24 hr 06/03/20 05:14 WBC 12.3 H RBC 3.47 L Hgb 11.6 L D Hct 34.2 L MCV 98.6 MCH 33.4 MCHC 33.9 RDW 12.3 Plt Count 188 MPV 9.3 Immature Gran % (Auto) 0.4 Neut % (Auto) 60.2 Lymph % (Auto) 32.6 [place] % (Auto) 6.1 Eos % (Auto) 0.5 Baso % (Auto) 0.2 Lymph # (Auto) 3.99 H [place] # (Auto) 0.8 H Eos # (Auto) 0.1 Baso # (Auto) 0.0 Abs Immat Gran (auto) 0.05 H Absolute Neuts (auto) 7.4 H Absolute Nucleated RBC 0.0 Nucleated RBC % 0.0
[2020-06-03 09:05] VITALS: BP 108/69; PULSE 68; RESP 16; TEMP 36.7; O2SAT 100
[2020-06-03 09:08] VITALS: PULSE 65; RESP 16; O2SAT 99
== END 2020-06-03 08:44 | disposition home health service (06) ==
LOC: ANHSURGERY 08:39 → ANHOB2 06-03 06:55
PROVIDERS: PCP Family Medicine; Visit Provider Obstetrics & Gynecology Gynecology
PROC: (CPT 58260; principal; 2020-06-02 07:30)
DX: N99.85 Post endometrial ablation syndrome (principal); R10.2 Pelvic and perineal pain; N80.0 Endometriosis of uterus; F17.210 Nicotine dependence, cigarettes, uncomplicated
CPT/HCPCS: 58260; 36415; 85025; 88307; A9270; J0131; J0330; J0690; J1100; J1885; J2250; J2270; J2405; J2704; J3010; J7030; J7120; J7121

== ENCOUNTER → 2021-01-16 08:55 | Outpatient (CLI) | payer OTHER, SELFPAY ==
[2021-01-16 16:43] LABS: SARS-CoV-2 RNA PCR Negative
== END ==
PROVIDERS: PCP Nurse Practitioner Family; Visit Provider Nurse Practitioner Family
DX: Z20.822 Contact with and (suspected) exposure to COVID-19 (principal)
CPT/HCPCS: C9803; U0003; U0005

== ENCOUNTER 2021-09-22 08:47 | Emergency (ER) | payer OTHER, SELFPAY ==
--- NOTE | ~2021-09-22 | CT_ITS ---
EXAMINATION: CT wrist LT wo con DATE: 09/22/2021 09:36 INDICATION: Suspected left wrist dislocation on prior radiographs. TECHNIQUE: High resolution computed tomography (CT) of the left wrist was performed without intraveno us contrast. Additional sagittal and coronal reconstructions were performed. Automated exposure contr ol and iterative reconstruction technique were employed. The dose-length product was 236.73 mGy-cm. COMPARISON: Radiograph dated 09/22/2021 FINDINGS: Again seen is mild dorsal/radial subluxation at the first carpometacarpal joint. There is associated moderate osteoarthritis at the first carpometacarpal joint with nonuniform joint space narrowing and some corresponding remodeling of the articular surfaces and small radial sided osteophytes at both th e trapezium and base of the first metacarpal suggesting the subluxation may be chronic. There is a sm all fluid collection surrounding the distal abductor pollicis longus tendon, unclear whether this rep resents tenosynovitis or joint effusion from the underlying first carpal metacarpal joint. A couple m illimeter ulnar positive variance with mild cystic change at the ulnar side of the proximal articular surface of the lunate consistent with ulnocarpal impaction. Additional likely degenerative subarticu lar cystic change at the volar aspect of the distal radius and at the ulnar margin of the proximal ca pitate. Additional mild osteoarthritis at the triscaphe and second carpometacarpal joints. Alignment of the left wrist is otherwise normal. No acute fracture. IMPRESSION: 1. Moderate osteoarthritis of the first carpometacarpal joint with age-indeterminate mild dorsal/radi al subluxation. No acute fracture. 2. Small fluid collection surrounding the distal abductor pollicis longus tendon near the base of the thumb which could represent tenosynovitis or a first carpal metacarpal joint effusion. 3. 2 mm ulnar positive variance with cystic changes at the ulnar side of the proximal lunate consiste nt with ulnocarpal impaction. Reviewed, dictated and finalized at location A. IMPRESSION: 1. Moderate osteoarthritis of the first carpometacarpal joint with age-indeterm inate mild dorsal/radial subluxation. No acute fracture. 2. Small fluid collection surrounding the distal abductor pollicis longus tendo n near the base of the thumb which could represent tenosynovitis or a first car pal metacarpal joint effusion. 3. 2 mm ulnar positive variance with cystic changes at the ulnar side of the pr oximal lunate consistent with ulnocarpal impaction.
--- NOTE | ~2021-09-22 | XR_ITS ---
XR hand LT min 3V DATE: 09/22/2021 09:06 INDICATION: Injury. Thumb pain. TECHNIQUE:3 views COMPARISON: 09/28/2018 left wrist FINDINGS: There are a couple of small bony densities adjacent to the base of the first metacarpal bon e and lateral subluxation of the first metacarpal bone at the first carpometacarpal joint, suggesting recent fracture/subluxation given the history of injury and thumb pain. CT left wrist correlation wo uld be of benefit for further evaluation. No other fracture or dislocation is noted. IMPRESSION: Fracture/subluxation at first carpometacarpal joint is suspected; consider CT left wrist examination for more definitive evaluation Reviewed, dictated and finalized at location B. IMPRESSION: Fracture/subluxation at first carpometacarpal joint is suspected; c onsider CT left wrist examination for more definitive evaluation
[2021-09-22 08:50] VITALS: BP 115/82; PULSE 72; RESP 20; TEMP 37.1; O2SAT 100
--- NOTE | 2021-09-22 09:16 | ED.UPPEXIN ---
HPI - Extremity Injury (Upper) General Chief Complaint: Extremity Injury, Upper Stated Complaint: L HAND INJURY Time Seen by Provider: 09/22/21 08:53 History of Present Illness HPI narrative: Patient is a 40-year-old right hand dominant female here for evaluation of left hand pain. Patient states that she started to develop some pain at the base of her left thumb about 3 weeks ago after moving several heavy boxes. States the pain has been a constant dull ache since, but 2 hours ago while she was at work, she got her left hand in between a shelf and a box, and she states that the pain increased ever since. Reports the pain is over the base of her left thumb, and it it worse with movement of her fingers and her hand. Additionally reports paresthesias in her fingers 1-5. Has not attempted any pain medicine; states she only can take 200 mg ibuprofen at a time without becoming nauseous. Related Data Home Medications Medication Instructions Recorded Confirmed alprazolam 0.5 mg tablet 0.5 mg PO TID PRN Anxiety 02/20/19 09/22/21 Allergies Allergy/AdvReac Type Severity Reaction Status Date / Time buspirone AdvReac Intermediate FUZZY Verified 09/22/21 13:12 FEELING IN BRAIN/BODY NUMB/TWITCHING/DRY HEAVES lorazepam AdvReac Intermediate FUZZY Verified 09/22/21 13:12 FEELING IN BRAIN/BODY NUMB/TWITCHING/DRY HEAVES Review of Systems Review of Systems: Gen: Denies fevers or chills Eyes: Denies eye pain or visual change ENT: Denies congestion Respiratory: Denies shortness of breath or cough CV: Denies chest pain or palpitations GI: Denies abdominal pain nausea, emesis or diarrhea denies burning, urgency, frequency or hematuria Musculoskeletal: Reports left hand pain Neuro: Denies numbness, tingling, weakness or focal weakness Skin: Denies rash Except as documented, all other systems reviewed and negative [facility] Past Medical History Medical History (Updated 09/22/21 @ 13:50 by Cl Martínez MD) Abnormal uterine bleeding Ankle sprain Anxiety Bronchitis Chronic sinusitis H/O gastroesophageal reflux (GERD) (normal spontaneous vaginal delivery) x 4 Osteoarthritis of carpometacarpal joint of thumb Right ankle pain Scoliosis Status post hysteroscopy Tobacco abuse Surgical History Surgical History H/O foot surgery X 3 History of bilateral tubal ligation S/P endometrial ablation Social History Social History Smoking packs per day: 1 Smoking cigarettes per day: 20.0 Years smoked: 24 Smoking pack-years: 24.00 Smoking status: Current every day smoker Tobacco type: cigarettes Alcohol intake: current Gender identity (if verbalized by the patient): Female Spiritual care concerns: No Exam Narrative: APPEARANCE: No acute distress, nontoxic, resting in bed EYES: EOMI HEENT: Normocephalic, atraumatic, OMM RESPIRATORY: No respiratory distress Clear to auscultation bilaterally with no rhonchi wheezing or rales. CARDIOVASCULAR: 2+ radial pulses bilaterally. Brisk capillary refill. Regular rate and rhythm without murmurs rubs or gallops. ABDOMINAL: Soft, nontender, nondistended, no rebound or guarding MUSCULOSKELETAl: Left hand is deviated radially. Tender to palpation over anatomic snuffbox. Reports pain at base of thumb with movement of thumb, also reports pain at base of thumb with flexion of fingers. Able to move digits but states it is painful. Sensation intact over entirety of hand. No bony tenderness along forearm, humerus or clavicle. Moves all extremities. No clubbing, cyanosis or edema. NEURO: Awake and alert. Following commands, speech normal, no focal deficits SKIN:: Warm, dry. No rashes lesions or abrasions PSYCHIATRIC: Normal affect/mood Course Vital Signs Vital signs: Vital Signs Temperature 98.8 F 09/22/21 08:50 Pulse Rate 7
--- NOTE | 2021-09-22 11:38 | PC.NURSE ---
brace placed with erp at bedside and reevaluated at that time.
[2021-09-22 11:39] VITALS: BP 114/87; PULSE 72; RESP 16; O2SAT 99
--- NOTE | 2021-09-22 11:40 | PC.NURSE ---
Left Hand Thumb Spica Splint applied Prior to discharge.
== END 2021-09-22 11:40 | disposition home or self-care (01) ==
PROVIDERS: Emergency Provider Emergency Medicine; PCP Family Medicine
DX: M65.9 Synovitis and tenosynovitis, unspecified (principal); F41.9 Anxiety disorder, unspecified; K21.9 Gastro-esophageal reflux disease without esophagitis; J32.9 Chronic sinusitis, unspecified; M18.9 Osteoarthritis of first carpometacarpal joint, unspecified; F17.210 Nicotine dependence, cigarettes, uncomplicated
CPT/HCPCS: 29125; 73130; 73200; 99284

== ENCOUNTER 2021-10-23 06:57 | Emergency (ER) | payer OTHER, SELFPAY ==
[2021-10-23 07:04] VITALS: BP 118/72; PULSE 84; RESP 18; TEMP 36.2; O2SAT 100
[2021-10-23 09:31] LABS: SARS-CoV-2 RNA PCR Negative
--- NOTE | 2021-10-23 09:37 | ED.GENADULT ---
HPI - General Adult General Chief complaint: Upper Respiratory Infection Stated complaint: sore throat Time Seen by Provider: 10/23/21 07:12 Source: RN notes reviewed History of Present Illness HPI narrative: Patient presents emerged department from home for sore throat patient states symptoms began 2 days ago. States that symptoms initially began with pain on the left side of her throat. Pain is worse with swallowing states it radiates into her left ear. She denies any fevers or chills rhinorrhea notes a mild nonproductive cough denies abdominal pain nausea vomiting. Patient states she has had 2 other children have been sick at home states she took ibuprofen at home with minimal relief Related Data Home Medications Medication Instructions Recorded Confirmed alprazolam 0.5 mg tablet 0.5 mg PO TID PRN Anxiety 02/20/19 10/14/21 Allergies Allergy/AdvReac Type Severity Reaction Status Date / Time buspirone AdvReac Intermediate FUZZY Verified 10/14/21 14:02 FEELING IN BRAIN/BODY NUMB/TWITCHING/DRY HEAVES lorazepam AdvReac Intermediate FUZZY Verified 10/14/21 14:02 FEELING IN BRAIN/BODY NUMB/TWITCHING/DRY HEAVES Review of Systems Review of Systems: Gen.: Denies fevers or chills Eyes: Denies eye pain or visual change ENT: See HPI Respiratory: Denies shortness of breath or cough CV: Denies chest pain GI: Denies abdominal pain nausea, emesis Musculoskeletal: Denies back pain or muscle pain Neuro: Denies numbness, tingling, weakness or focal weakness Skin: Denies rash Except as documented, all other systems reviewed and negative [facility] Past Medical History Medical History Abnormal uterine bleeding Ankle sprain Anxiety Bronchitis Chronic sinusitis H/O gastroesophageal reflux (GERD) (normal spontaneous vaginal delivery) x 4 Osteoarthritis of carpometacarpal joint of thumb Right ankle pain Scoliosis Status post hysteroscopy Tobacco abuse Surgical History Surgical History H/O foot surgery X 3 History of bilateral tubal ligation S/P endometrial ablation Social History Social History Smoking packs per day: 1 Smoking cigarettes per day: 20.0 Years smoked: 24 Smoking pack-years: 24.00 Smoking status: Current every day smoker Tobacco type: cigarettes Alcohol intake: current Gender identity (if verbalized by the patient): Female Spiritual care concerns: No Exam Narrative: APPEARANCE: No acute distress, nontoxic, resting in bed EYES: EOMI HEENT: Normocephalic, atraumatic, TMs clear bilaterally nares patent, there is erythema the posterior pharynx bilateral tonsils are 3+ with white exudate showed bilateral tonsils, uvula midline, no trismus, tolerating own secretions : Supple no cervical lymphadenopathy RESPIRATORY: No respiratory distress Clear to auscultation bilaterally with no rhonchi wheezing or rales. CARDIOVASCULAR: Regular rate and rhythm without murmurs rubs or gallops. ABDOMINAL: Soft, nontender, nondistended, no rebound or guarding MUSCULOSKELETAl: Moves all extremities. NEURO: Awake and alert. Following commands, speech normal, no focal deficits SKIN:: Warm, dry. No rashes lesions or abrasions PSYCHIATRIC: Normal affect/mood, Course Course Emergency Course: Discussed with patient results of workup and diagnosis. Discussed need for follow-up with primary care, proper use of medication, and reasons to return to the emergency department. Patient understands and agrees to current treatment plan Vital Signs Vital signs: Vital Signs Temperature 97.2 F L 10/23/21 07:04 Pulse Rate 84 10/23/21 07:04 Respiratory Rate 18 10/23/21 07:04 Blood Pressure 118/72 10/23/21 07:04 Pulse Oximetry 100 10/23/21 07:04 Oxygen Delivery Room Air 10/23/21 07:04 [place]
[2021-10-23] MEDS: ACETAMINOPHEN 500 MG TABLET 1000 MG PO (09:51)
[2021-10-23] MEDS: AMOXICILLIN 500 MG CAPSULE PO (09:51)
[2021-10-23 09:59] VITALS: RESP 16
== END 2021-10-23 10:00 | disposition home or self-care (01) ==
PROVIDERS: Emergency Provider Emergency Medicine; PCP Family Medicine
DX: J02.9 Acute pharyngitis, unspecified (principal); Z20.822 Contact with and (suspected) exposure to COVID-19; K21.9 Gastro-esophageal reflux disease without esophagitis; M18.9 Osteoarthritis of first carpometacarpal joint, unspecified; F41.9 Anxiety disorder, unspecified; F17.210 Nicotine dependence, cigarettes, uncomplicated
CPT/HCPCS: 87081; 87880; 99283; A9270; C9803; U0003; U0005

== ENCOUNTER 2022-01-08 16:02 | Outpatient (RCR) | payer OTHER, SELFPAY ==
--- NOTE | 2022-01-08 17:13 | OTOPEVAL1 ---
Assessment and note entered by Kat Torres OT Evaluation Information Assessment Status Evaluation Diagnosis Osteoarthritis Onset June 2021 Reported Pain Level Pain Score 6: Self Report Assessment OT Clinical Summary The patient is a 41 year old female who was referred to outpatiet OT due to osteoarthritis in L CMC joint affecting the patient's pain and strength. 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 The patient requires skilled OT to address current deficits and improve the function of L hand needed to perform daily tasks and improve quality of life without pain in L hand. Plan of Care Interventions Therapeutic Exercise,Manual Therapy,Therapeutic Activities,Hot Pack/Cold Pack,Electrical Stimulation,Ultrasound OT Services Indicated Yes Treatment Frequency and 2x/week for 7 visits. Duration These treatments will address the objective and functional deficits as defined above. The patient will be advanced safely and appropriately in order for the patient to progress towards his/her prior level of function. Additional exercises will be introduced and as well as a comprehensive home exercise program upon discharge, if needed, ?to ensure carryover of functional gains achieved in the clinic. This treatment plan has been reviewed and agreement upon by the patient.
--- NOTE | 2022-02-02 07:52 | OTOPDC ---
Assessment and note entered by Kat Torres, OT
--- NOTE | 2022-02-02 09:12 | BUOTOPDC ---
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 The patient continues to demonstrate moderate to maximal pain during any gripping activities which limit her ability to engage in work and self care tasks. The patient has developed an enlargement at the base of metacarpal of thumb, when palpated, feels built up like a sac, measuring 2cm by 1cm with circumference of wrist at 8.5 cm and R wrist measuring at 8.25 cm. This spot is at the base of thumb where the pain radiates into hand and back of wrist. The patient no longer requires the skills of a therapist due to need for follow up with MD to determine main cause of pain and address build up at base of first metacarpal limiting the patient's progress with therapy at this time. Plan of Care Interventions Therapeutic Exercise,Manual Therapy,Therapeutic Activities,Hot Pack/Cold Pack,Electrical Stimulation,Ultrasound OT Services Indicated No Treatment Frequency and 2x/week for 7 visits. Duration
--- NOTE | 2022-02-02 09:17 | BUOTOPDC ---
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 The patient continues to demonstrate moderate to maximal pain during any gripping activities which limit her ability to engage in work and self care tasks. The patient has developed an enlargement at the base of metacarpal of thumb, when palpated, feels built up like a sac, measuring 2cm by 1cm with circumference of wrist at 8.5 cm and R wrist measuring at 8.25 cm. This spot is at the base of thumb where the pain radiates into hand and back of wrist. The patient no longer requires the skills of a therapist due to need for follow up with MD to determine main cause of pain and address build up at base of first metacarpal limiting the patient's progress with therapy at this time. Plan of Care Interventions Therapeutic Exercise,Manual Therapy,Therapeutic Activities,Hot Pack/Cold Pack,Electrical Stimulation,Ultrasound OT Services Indicated No
== END 2022-02-01 09:31 | disposition home or self-care (01) ==
LOC: CHSOT 16:02
PROVIDERS: Visit Provider Orthopaedic Surgery
DX: M18.12 Unilateral primary osteoarthritis of first carpometacarpal joint, left hand (principal)
CPT/HCPCS: 97035; 97110; 97140; 97165; 97530

== ENCOUNTER 2022-03-30 10:51 | Outpatient (CLI) | payer OTHER, SELFPAY ==
--- NOTE | ~2022-03-30 | MR_ITS ---
MRI of the left wrist Clinical history: Pain TECHNIQUE: Axial and sagittal proton-density and proton-density fat-sat images, and coronal T1-weight ed and proton-density fat-sat images were performed. FINDINGS: Scapholunate ligament is intact, and there is no widening of the scapholunate interval. Melony otriquetral ligament is also intact. Central articular disc of the TFCC is intact. No tear or perfora tion of the TFCC identified. There is focal developing cystic change at the base of the lunate bone. There is moderate to advanced osteoarthritis of the first CMC joint, with reactive marrow edema in the first metacarpal. Remaining bone marrow signals are unremarkable. Flexor and extensor tendons are unremarkable. There is a small ganglion cyst along the volar aspect o f the distal radius measuring 7 mm in diameter, possibly extending from the DRUJ (series 4 image 23). There is an additional multiseptated ganglion cyst along the volar aspect of the distal radius more laterally located, measuring up to approximately 1.3 x 0.9 x 0.8 cm in extent, possibly extending fro m the STT articulations. IMPRESSION: 1.3 x 0.9 x 0.8 cm ganglion cyst, multiloculated/septated, at the lateral, volar aspect of the distal radius, possibly extending from the STT attenuation. Additional 7 mm ganglion cyst along the more central volar aspect of the distal radius, possibly exte nding from the DRUJ. Moderate to advanced osteoarthritis of the first CMC joint. Reviewed, dictated and finalized at location . 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 Additional 7 mm ganglion cyst along the more central volar aspect of the distal radius, possibly extending from the DRUJ. Moderate to advanced osteoarthritis of the first CMC joint.
== END 2022-03-30 10:52 | disposition home or self-care (01) ==
LOC: ANHIMG 10:55
PROVIDERS: PCP Family Medicine; Visit Provider Orthopaedic Surgery
DX: R22.32 Localized swelling, mass and lump, left upper limb (principal); M25.532 Pain in left wrist; M67.432 Ganglion, left wrist; M19.032 Primary osteoarthritis, left wrist
CPT/HCPCS: 73221

== ENCOUNTER 2022-04-29 00:27 | Day surgery (SDC) | payer OTHER, SELFPAY ==
[2022-04-20 15:35] VITALS: BMI 24.1
--- NOTE | 2022-04-20 15:43 | PC.NURSE ---
Report to the Outpatient Waiting Room, entrance under the green pavilion located off [facility], at time 1130 on date 04/29/22. Planned Procedure Time: 1330. Time changes happen often and if your time is changed the preop area will call you the afternoon before. - You and your visitor will be asked to self-screen and do not enter if you have any COVID symptoms. - Only one visitor is requested with a max of two and NO children visitors are allowed at this time. - The patient visitor may be requested to leave or wait in car when not with patient due to distancing restrictions. - A mask is optional within the hospital at this time. Patients may have clear liquids (water, carbonated beverages, clear teas, apple juice) until 3 hours prior to surgery with a maximum of 20 ounces. - No food from midnight until time of surgery Take the following medications with a SIP of water the morning of surgery: XANAX DO NOT STOP ANY OF YOUR OTHER PRESCRIPTION MEDICATIONS PRIOR TO SURGERY EXCEPT THE FOLLOWING Medications to discontinue per physician: IBUPROFEN Date to take last dose: 04/21/22 Please no make-up, nail mohawk, hairspray, perfume, deodorant, or body powder the day of surgery. No jewelry (including any body piercings) or valuables the day of surgery, leave them at home. Please take a shower or bath the night before, or the morning of, surgery with an antibacterial soap. Wear comfortable, loose fitting clothing. - Jewelry must be removed prior to entering the operating room. Rings and piercings that are not removed may be cut off. - The hospital will not accept responsibility for valuables. - Please leave all valuables, including medications, at home the day of surgery. If you are going home after surgery, a licensed mobile lounge driver must drive you home. - NO public transportation without another adult if you receive anesthesia. - We recommend that an adult stay with you for 24 hours following discharge. - We also recommend that you do not drive, make important decision, drink alcoholic beverages, or take any drugs that were not prescribed by your health care provider for at least 24 hours after your discharge time. Follow any additional instructions given to you from your surgeon. If you or anyone in your household have experienced Covid symptoms in the past week, please notify your surgeon or the nurse liaison at the phone number below for possible testing. Telephone instructions given to PT - MATHEW ACEVEDO and asked if any additional questions and then verbalized understanding. Patient advised to call surgeon office or pre surgery nurse liaison [phone] if any additional questions.
--- NOTE | 2022-04-29 08:13 | WPDANESEPPF ---
Anes - Initial Pre Proc Eval Procedure: Operation Date: 04/29/22 13:30 Proposed Procedures p Excision Ganglion Cyst Left Wrist - Cl Martínez MD Date/Time: 04/29/22 08:13 Surgeon: Cl Martínez MD Pre Op Diagnosis: left wrist ganglion cyst Patient Data Age: 41 Gender: F Height: 1.57 m Weight: 59.9 kg Allergies Allergy/AdvReac Type Severity Reaction Status Date / Time buspirone AdvReac Intermediate FUZZY Verified 04/29/22 11:46 FEELING IN BRAIN/BODY NUMB/TWITCHING/DRY HEAVES lorazepam AdvReac Intermediate FUZZY Verified 04/29/22 11:46 FEELING IN BRAIN/BODY NUMB/TWITCHING/DRY HEAVES Home Medications Medication Instructions Recorded Confirmed Type alprazolam 0.5 mg tablet 0.5 mg PO TID PRN Anxiety 02/20/19 04/29/22 History arm brace (Wrist Brace Medium) #1 ea 09/22/21 04/06/22 Rx ibuprofen 600 mg tablet 600 mg PO TID PRN pain #14 tabs 10/23/21 04/29/22 Rx Patient hx anesthesia problems: none Family hx anesthesia problems: none Results Review: All pre-operative results and documents have been reviewed as part of the pre-operative evaluation. COUNTS INCLUDE 234 BEDS AT THE [facility] Past Medical History Medical History (Updated 04/29/22 @ 08:14 by Herbert Trinidad DO) Abnormal uterine bleeding Ankle sprain Anxiety Bronchitis Chronic sinusitis Ganglion cyst of volar aspect of left wrist GERD (gastroesophageal reflux disease) H/O gastroesophageal reflux (GERD) Left hand pain Left wrist pain (normal spontaneous vaginal delivery) x 4 Osteoarthritis of carpometacarpal joint of thumb Panic attack Right ankle pain Scoliosis Status post hysteroscopy Subcutaneous mass of left thumb Tobacco abuse Surgical History Surgical History H/O foot surgery X 3 History of bilateral tubal ligation S/P endometrial ablation Social History Social History Smoking packs per day: 0.75 Smoking cigarettes per day: 15.0 Years smoked: 23 Smoking pack-years: 17.25 Smoking status: Current every day smoker Tobacco type: cigarettes and e-cigarettes/vaping Additional smoking assessment comments: QUIT CIGARETTES 03/28/22, NOW VAPING Alcohol intake: never Substance use: never Substance use type: does not use Living arrangements: with family Gender identity (if verbalized by the patient): Female Spiritual care concerns: No Anes - Eval Final PreProcedure Day of Procedure 04/29/22 08:13 Patient weight: normal Heart: regular rate and rhythm Lungs: clear to auscultation Airway: Mallampati scale class II Neurological: alert and oriented Last oral intake: >/= 8 hours ASA classification: II Emergent: no Anesthetic plan: proceed Anesthesia type and monitoring: general LMA and standard monitoring Results Review: All pre-operative results and documents have been reviewed as part of the pre-operative evaluation. Informed Consent: The patient's anesthetic plan and its attendant risks and benefits were discussed with the patient/family/POA. Questions were solicited and answers provided to the satisfaction of the patient/family/POA.
--- NOTE | 2022-04-29 11:17 | WPDHPUPDATE1 ---
History and Physical Update Update Date/Time: 04/29/22 11:17 History and Physical has been reviewed, including an updated exam of the patient. There are NO changes in the patient's condition. Risks, benefits, and alternatives have been discussed and questions answered. Patient agrees to proceed with procedure.
[2022-04-29 11:52] VITALS: BP 113/74; PULSE 80; RESP 20; TEMP 36.8; O2SAT 100
[2022-04-29] MEDS: ACETAMINOPHEN 500 MG TABLET 1000 MG PO (11:53)
[2022-04-29] MEDS: LACTATED RINGERS 1,000 ML 30 ML IV CONT (12:10)
[2022-04-29] MEDS: KETOROLAC 15 MG/ML VIAL (*BKC) IV PUSH (12:13)
[2022-04-29] MEDS: ceFAZolin 2 GM/D5W 50 ML 2 GM/50 ML BAG IVPB (12:56)
--- NOTE | 2022-04-29 13:03 | W.PM.PROC2 ---
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 MRI shows ganglion cyst from the volar aspect of the wrist joint. Unrelieved with injection, bracing and activity modification. Presents for operative removal. Findings Two separate volar ganglion cyst distal radius. 2 mm loose body volar wrist which appears to be rice body. Description of Procedure After informed consent the operative extremity was marked in the preoperative holding area. Patient received intravenous antibiotics. Patient taken to the operating room where they underwent IV sedation anesthesia by anesthesia team. Positioned supine on operating table. Time-out performed confirming the patient, patient's site of surgery and the plan. Left upper extremity prepped and draped in the usual sterile surgical fashion using a ChloraPrep skin solution. Hand and wrist exsanguinated and arm tourniquet inflated to 200 mmHg. Standard volar flexor carpi radialis incision utilized. Fifteen blade knife used to make longitudinal incision. Flexor carpi radialis tendon identified tendon sheath incised in line with skin incision. Tendon retracted to protect the neurovascular elements. Floor of the tendon sheath incised with a 15 blade knife. Flexor pollicis retracted medial. pronator quadratus then divided off the watershed line and reflected ulnarward to expose the distal radius and the cyst. Two separate cysts identified 1 more radial and 1 more central. Both of these followed to the wrist joint capsule and excised sharply. Wrist joint debrided with curette and rongeur. No remaining cyst material noted. Wound thoroughly irrigated with antibiotic solution. Pronator repaired with 3 0 Monocryl interrupted suture. tourniquet released and bleeding points coagulated with bipolar cautery. Skin closed with interrupted subcutaneous 0000 Monocryl interrupted suture and running 0000 Monocryl subcuticular stitch. Local anesthetic with 0.5% Marcaine. Sterile dressing applied. Padded dressing and splint then applied. Tourniquet released and good capillary refill noted in the fingers and thumb. Patient awoke from anesthesia, extubated and taken to the recovery room in stable condition. All sponge and instrument counts correct at the end of case. Implants None Estimated Blood Loss 5 Tourniquet Time 32 Drains No Packing No Pathology Yes ( Cyst wall and loose body sent for pathology.) Complications None Condition Stable Disposition PACU [facility] Billing Surgery - Charge Forward: Surgery Billing ([id number])
[2022-04-29] MEDS: BUPivacaine HCL 0.5% PF 30 ML VIAL INFILTRATE (13:25)
[2022-04-29] MEDS: methylPREDNISolone ACETATE 40 MG/ML VIAL XX (13:52)
[2022-04-29 14:17] VITALS: BP 113/68; PULSE 88; RESP 14; O2SAT 93
[2022-04-29 14:45] VITALS: BP 133/50; PULSE 84
[2022-04-29 15:10] VITALS: BP 112/78; PULSE 66
== END 2022-04-29 15:25 | disposition home or self-care (01) ==
PROVIDERS: PCP Family Medicine; Visit Provider Orthopaedic Surgery
PROC: (CPT 25111; principal; 2022-04-29 13:30)
DX: M67.432 Ganglion, left wrist (principal); M24.032 Loose body in left wrist; F17.290 Nicotine dependence, other tobacco product, uncomplicated
CPT/HCPCS: 25111; 88304; A9270; J0690; J1030; J1885; J2250; J2704; J3010; J7120

== ENCOUNTER 2022-06-17 16:24 | Outpatient (RCR) | payer OTHER, SELFPAY ==
--- NOTE | 2022-06-17 17:40 | BUOTOPEVAL ---
Assessment and note entered by Marie Chamorro, OT Evaluation Information Assessment Status Evaluation Diagnosis L wrist pain Onset 04/29/22 Subjective Information Patient had 3 cysts removed in her L wrist on and reports some stiffness and pain in the lateral wrist and base of the L thumb CMC. Patient reports that the pain has improved in some areas and has stayed the same in other areas (based of thumb). She states that the doctor diagnosed her with osteoarthritis in the L thumb as well. Patient is not currently wearing any wrist or hand orthosis on the L hand. Patient reports that it is painful picking up her toddler, picking up a soda or a milk jug, and opening jars. She notes intermittent shooting pain from lateral wrist up into the distal thumb. 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 Patient's goals for therapy are to improve range of motion in the L wrist and thumb as well as decrease pain. Quick DASH: 43% Reported Pain Level Pain Score 0: Self Report Assessment OT Clinical Summary Patient is a 41 year old female who presents to outpatient OT post ganglion cyst removal with L wrist and thumb pain and decreased ROM. Secondary to hypersensitivity, decreased L wrist, escrow assistant and pinch strength as well as decreased L wrist and thumb ROM patient has a difficult time picking up her toddler, opening jars, carrying objects and using the computer to perform her school work. Skilled OT services are recommended in order to facilitate these skills so she is able to improve her independence with reaching, grasping and carrying skills. Plan of Care Interventions Therapeutic Exercise,Manual Therapy,Therapeutic Activities,Hot Pack/Cold Pack,Sensory Integrative Techn,Self-Care/Home Management,Ultrasound OT Services Indicated Yes Treatment Frequency and 2x/week for up to 12 visits Duration These treatments will address the objective and functional deficits as defined above. The patient will be advanced safely and appropriately in order for the patient to progress towards his/her prior level of function. Additional exercises will be introduced and as well as a comprehensive home exercise program upon discharge, if needed, ?to ensure carryover of functional gains achieved in the clinic. This treatment plan has been reviewed and agreement upon by the patient.
--- NOTE | 2022-08-11 17:36 | BUOTOPEVAL ---
Assessment and note entered by Marie Chamorro, OT Evaluation Information Assessment Status Progress Diagnosis L wrist pain Onset 04/29/22 Subjective Information Patient reported increased edema and pain in the base of the L thumb and wrist that began to increase approximately 3 weeks ago. Patient reports pain and edema in the lateral wrist and volar/lateral wrist, lateral to surgical scar. Patient was seen by ortho in June who stated that he felt pain and edema was related to osteoarthritis and to continue PT. Patient states that it is very difficult to lift and carry her daughter and grandaughter. She states that her ROM is much better and she has had a litte improvement with her sensation Reported Pain Level Pain Score 6: Self Report Pain Score 0: Self Report Pain Score 5: Self Report Pain Score 0: Self Report Pain Score 4: Self Report Pain Score 6: Self Report Pain Score 5: Self Report Pain Score 0: Self Report Pain Score 0: Self Report Additional Pain Score Comments patient is taking an inflammatory medicine Additional Pain Score Comments Pt. reports a lot of pain last night in thumb, but does not rate. Additional Pain Score Comments Pt. reports soreness and tenderness along incision and thumb. Assessment OT Clinical Summary Patient is a 41 year old female who has been seen for 9 OT sessions secondary to decreased strength, ROM and pain in the L wrist following removal of 3 cysts on 04/29/22. Patient remains appropriate for outpatient OT services secondary to continued L thumb pain and edema. 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 Pain and edema continue to limit patient's ability to lift, carry and grasp. Will continue address these deficits as well as recommend implementation of L CMC support brace for joint protection and stability. Plan of Care Interventions Therapeutic Exercise,Manual Therapy,Therapeutic Activities,Hot Pack/Cold Pack,Ultrasound OT Services Indicated Yes Treatment Frequency and 2x/week for up to 8 additional sessions Duration These treatments will address the objective and functional deficits as de
== END 2022-09-15 23:59 | disposition home or self-care (01) ==
LOC: CHSOT 16:24
PROVIDERS: Visit Provider Orthopaedic Surgery
DX: M67.432 Ganglion, left wrist (principal); M25.532 Pain in left wrist; M18.9 Osteoarthritis of first carpometacarpal joint, unspecified
CPT/HCPCS: 97035; 97110; 97140; 97165

== ENCOUNTER 2022-12-23 08:19 | Outpatient (CLI) | payer OTHER, SELFPAY ==
--- NOTE | 2022-12-23 08:27 | ECG_ITS ---
Measurements Intervals [place] Rate: 69 P: 39 [place]: 152 QRS: 39 QRSD: 100 T: 26 QT: 367 QTc: 396 Interpretive Statements SINUS RHYTHM BASELINE ARTIFACT- I, III, AVR, AVL, AVF NORMAL ECG COMPARED TO ECG 06/20/2019 18:02:28 NO SIGNIFICANT CHANGES Electronically Signed On 12-23-2022 8:36:52 CDT by Sekou Pagan D.O.
== END 2022-12-23 08:20 | disposition home or self-care (01) ==
LOC: ANHSURGERY 08:22
PROVIDERS: PCP Nurse Practitioner Family; Visit Provider Orthopaedic Surgery
DX: Z01.810 Encounter for preprocedural cardiovascular examination (principal); Z72.0 Tobacco use
CPT/HCPCS: 93005

== ENCOUNTER 2022-12-30 00:32 | Day surgery (SDC) | payer OTHER, SELFPAY ==
[2022-12-20 17:43] VITALS: BMI 22.6
--- NOTE | 2022-12-20 17:44 | PC.NURSE ---
Addendum entered by Diane Billings RN 12/20/22 17:49: STOP NSAIDS X7 DAYS PRIOR TO SURGERY DAY Original Note: Report to the Outpatient Waiting Room, entrance under the green pavilion located off [facility], at time 07:00am on date 12/30/22. Planned Procedure Time: 09:00am. Time changes happen often and if your time is changed the preop area will call you the afternoon before. - You and your visitor will be asked to self-screen and do not enter if you have any COVID symptoms. - A mask is optional within the hospital at this time. Patients may have clear liquids (water, carbonated beverages, clear teas, apple juice) until 3 hours prior to surgery (6:00am) with a maximum of 20 ounces. - No food from midnight until time of surgery Take the following medications with a SIP of water the morning of surgery: xanax prn DO NOT STOP ANY OF YOUR OTHER PRESCRIPTION MEDICATIONS PRIOR TO SURGERY ?EXCEPT THE FOLLOWING Medications to discontinue per physician n/a Please no make-up, nail czech, hairspray, perfume, deodorant, or body powder the day of surgery. No jewelry (including any body piercings) or valuables the day of surgery, leave them at home. Please take a shower or bath the night before, or the morning of, surgery with an antibacterial soap. Wear comfortable, loose fitting clothing. - Jewelry must be removed prior to entering the operating room. Rings and piercings that are not removed may be cut off. - The hospital will not accept responsibility for valuables. - Please leave all valuables, including medications, at home the day of surgery. If you are going home after surgery, a licensed courtesy van driver must drive you home. - NO public transportation without another adult if you receive anesthesia. - We recommend that an adult stay with you for 24 hours following discharge. - We also recommend that you do not drive, make important decision, drink alcoholic beverages, or take any drugs that were not prescribed by your health care provider for at least 24 hours after your discharge time. Follow any additional instructions given to you from your surgeon. If you or anyone in your household have experienced Covid symptoms in the past week, please notify your surgeon or the nurse liaison at the phone number below for possible testing. Telephone instructions given to PATIENT and asked if any additional questions and then verbalized understanding. Patient advised to call surgeon office or pre surgery nurse liaison [phone] if any additional questions.
--- NOTE | 2022-12-29 14:51 | WPDANESEPPF ---
Anes - Initial Pre Proc Eval Procedure: Operation Date: 12/30/22 07:30 Proposed Procedures p Left Thumb Carpal Metacarpal Arthroplasty - Cl Martníez MD Date/Time: 12/29/22 14:51 Surgeon: Cl Martínez MD Pre Op Diagnosis: left thumb cmc arthritis Patient Data Age: 42 Gender: F Height: 1.57 m Weight: 56 kg Allergies Allergy/AdvReac Type Severity Reaction Status Date / Time buspirone AdvReac Intermediate FUZZY Verified 12/20/22 17:40 FEELING IN BRAIN/BODY NUMB/TWITCHING/DRY HEAVES lorazepam AdvReac Intermediate FUZZY Verified 12/20/22 17:40 FEELING IN BRAIN/BODY NUMB/TWITCHING/DRY HEAVES Home Medications Medication Instructions Recorded Confirmed Type alprazolam 0.5 mg tablet 0.5 mg PO TID PRN Anxiety 02/20/19 12/20/22 History arm brace (Wrist Brace Medium) #1 ea 09/22/21 12/07/22 Rx ibuprofen 600 mg tablet 600 mg PO TID PRN pain #14 tabs 10/23/21 12/20/22 Rx sennosides 8.6 mg-docusate sodium 1 tab-cap PO BID PRN constipation 04/29/22 12/20/22 Rx 50 mg tablet (Senna with Docusate #20 tabs Sodium) baclofen 20 mg tablet 20 mg PO PRN PRN Pain 12/20/22 12/20/22 History diclofenac sodium 75 mg 75 mg PO BID PRN Pain 12/20/22 12/20/22 History tablet,delayed release Patient hx anesthesia problems: other (history of panic attack after one surgery) Family hx anesthesia problems: none Results Review: All pre-operative results and documents have been reviewed as part of the pre-operative evaluation. [facility] Past Medical History Medical History Abnormal uterine bleeding Ankle sprain Anxiety Bronchitis Chronic sinusitis Degenerative arthritis of carpometacarpal joint of thumb Ganglion cyst of volar aspect of left wrist GERD (gastroesophageal reflux disease) H/O gastroesophageal reflux (GERD) Left hand pain Left wrist pain (normal spontaneous vaginal delivery) x 4 Osteoarthritis of carpometacarpal joint of thumb Panic attack Right ankle pain Scoliosis Status post hysteroscopy Subcutaneous mass of left thumb Tobacco abuse Surgical History Surgical History H/O foot surgery X 3 History of bilateral tubal ligation S/P endometrial ablation Social History Social History Smoking packs per day: 1 Smoking cigarettes per day: 20.0 Years smoked: 25 Smoking pack-years: 25.00 Smoking status: Former smoker Tobacco type: cigarettes and e-cigarettes/vaping Second hand tobacco smoke exposure: Yes (parents) Additional smoking assessment comments: QUIT CIGARETTES 03/28/22, NOW VAPING Alcohol intake: former Alcohol use details: stopped drinking 2016 Substance use: never Substance use type: does not use Living arrangements: with family Gender identity (if verbalized by the patient): Female Spiritual care concerns: No Anes - Eval Final PreProcedure Day of Procedure 12/29/22 14:51 Patient weight: normal Heart: regular rate and rhythm Lungs: clear to auscultation Airway: Mallampati scale class II Neurological: alert and oriented Last oral intake: >/= 8 hours ASA classification: II Emergent: no Anesthetic plan: proceed Anesthesia type and monitoring: general LMA and standard monitoring Results Review: All pre-operative results and documents have been reviewed as part of the pre-operative evaluation. Informed Consent: The patient's anesthetic plan and its attendant risks and benefits were discussed with the patient/family/POA. Questions were solicited and answers provided to the satisfaction of the patient/family/POA.
[2022-12-30] VITALS (10 sets, daily range): BP systolic 99–114; BP diastolic 48–79; PULSE 56–76; RESP 13–17; TEMP 35.9–36.4; O2SAT 95–100
--- NOTE | ~2022-12-30 | XR_ITS ---
EXAMINATION: XR surgery orthopedic DATE: 12/30/2022 09:27 INDICATION: Left thumb arthroplasty TECHNIQUE: 3 fluoroscopic images of the left hand were obtained during procedure performed by Dr. Selena sanno. Radiologist was not present for the imaging or procedure. The amount of fluoroscopy time used d uring this procedure was 0.5 minutes. COMPARISON: None. FINDINGS: The trapezium has been resected and there is a lucent tract at the base of the first metacarpal and a t the distal pole of the scaphoid consistent with a first carpal metacarpal suspension arthroplasty. Surgical wound appears to remain open with expected lucent soft tissue gas at the operative bed. No f racture. The remaining profiled joint spaces appear relatively preserved. IMPRESSION: 1. Fluoroscopy utilized during first carpal metacarpal suspension arthroplasty with resection of the trapezium. See procedure note for further detail. Reviewed, dictated and finalized at location A.
[2022-12-30] MEDS: LACTATED RINGERS 1,000 ML 30 ML IV CONT ×2 (07:00→09:14)
[2022-12-30] MEDS: KETOROLAC 15 MG/ML VIAL (*BKC) IV PUSH (07:01)
[2022-12-30] MEDS: ACETAMINOPHEN 500 MG TABLET 1000 MG PO (07:01)
--- NOTE | 2022-12-30 07:19 | WPDHPUPDATE1 ---
History and Physical Update Update Date/Time: 12/30/22 07:19 History and Physical has been reviewed, including an updated exam of the patient. There are NO changes in the patient's condition. Risks, benefits, and alternatives have been discussed and questions answered. Patient agrees to proceed with procedure.
[2022-12-30] MEDS: ceFAZolin 2 GM/D5W 50 ML 2 GM/50 ML BAG IVPB (07:28)
[2022-12-30] MEDS: BUPivacaine HCL 0.5% 10 ML AMP INFILTRATE (08:56)
--- NOTE | 2022-12-30 09:18 | P.OP_ITS ---
Procedure Note - Detailed Date of Procedure 12/30/22 Pre-op Diagnosis left thumb cmc arthritis Post-op Diagnosis Same Procedure Performed Left thumb CMC arthroplasty Surgeon Cl Martínez MD Launch Engineer 1st liaison inspection laboratory assistant Anesthesia General Indications 42-year-old with severe left thumb CMC joint arthritis as well as previous cyst ganglion formation and tendinitis. Has failed conservative treatment cortisone injections, bracing, medication. Presents for operative treatment. Findings Split tear the abductor pollicis tendon with tenosynovitis. Severe degenerative changes carpometacarpal joint. Description of Procedure Patient identified in the preoperative holding. Informed consent given. Operative extremity marked. Patient received intravenous antibiotics. Patient brought to the operating room where underwent general anesthetic by anesthesia team. Positioned supine on operating room table. Time-out performed confirming the patient, site of the surgery and the plan. Left hand prepped draped usual sterile surgical fashion ChloraPrep skin solution. The hand and wrist were exsanguinated and arm tourniquet inflated to 225 mmHg. Local anesthetic with 0.5% Marcaine plain. Longitudinal incision made over the carpometacarpal joint of the thumb the interval between the tendons. Incision made with 15 blade knife. Hemostasis controlled electrocautery. Dissection then carried down at the interval between the extensor and abductor tendons. Care was taken to protect the neurovascular elements. The abductor tendon was noted to have a split tear as well as significant tenosynovitis and a tendon sheath cyst. This was all sharply excised. The split tear was sharply excised with 15 blade knife. Capsulotomy was then performed over the carpometacarpal joint. The tr apezium was then identified with image intensification and removed is 1 bone with the aid of a K-wire as a joystick. After removal of the trapezium the suspension arthroplasty was then performed. Bilateral placed at the base of the 2nd metacarpal and 1st metacarpal and verified with image intensification. The suspension fiber lock implant was then inserted and instability was noted. Image intensification confirmed final placement. The split tendon that had been excised was then sutured into place as an interposition. 3-0 might Monocryl interrupted suture used. Wound thoroughly irrigated once again and the capsule repaired with 3-0 Monocryl interrupted suture. Subcutaneous tissue. 3-0 Monocryl interrupted suture and skin repaired 4 4-0 nylon interrupted suture. Sterile dressing applied. The patient was then woken from anesthesia, extubated and taken to the recovery room in stable condition. All sponge, needle, instrument counts were correct at the end of the case. Implants Arthrex fiber lock suspension implant Estimated Blood Loss 3 Tourniquet Time 70 Drains No Packing No Pathology None sent Complications None Condition Stable Disposition PACU [facility] Billing Surgery - Charge Forward: Surgery Billing ([id number])
[2022-12-30] MEDS: fentaNYL CITRATE INJ (*CRX) 100 MCG/2 ML VIAL 25 MCG IV PUSH ×8 (09:20→09:55)
[2022-12-30] MEDS: oxyCODONE HCL (*CRX) 5 MG TAB IR PO (10:38)
--- NOTE | 2022-12-30 11:54 | SUR.PHASEII ---
CORRECTION: ASSESSMENT CHARTED AT 1145 WAS SUPPOSED TO BE FOR 1045.
== END 2022-12-30 11:50 | disposition home or self-care (01) ==
PROVIDERS: PCP Nurse Practitioner Family; Visit Provider Orthopaedic Surgery
PROC: (CPT 25447; principal; 2022-12-30 07:30)
DX: M18.12 Unilateral primary osteoarthritis of first carpometacarpal joint, left hand (principal); F41.9 Anxiety disorder, unspecified; F17.290 Nicotine dependence, other tobacco product, uncomplicated
CPT/HCPCS: 25447; 99199; A9270; C1713; J0690; J1885; J2250; J2704; J3010; J7120

== ENCOUNTER 2023-09-09 14:34 | Outpatient (CLI) | payer BC, MEDICAID, SELFPAY ==
--- NOTE | ~2023-09-09 | XR_ITS ---
XR hip LT 2V w AP pelvis 09/09/2023 14:53 INDICATION: Left hip pain PROCEDURE: AP pelvis and 2 views left hip COMPARISON: No prior studies for comparison. FINDINGS: Fracture, dislocation or subluxation is not identified. Pelvic rings are intact. The soft t issues appear within normal limits. No foreign bodies are identified. IMPRESSION: 1: NO ACUTE BONE OR JOINT ABNORMALITY IDENTIFIED. Reviewed, dictated and finalized at location B.
== END 2023-09-09 14:35 | disposition home or self-care (01) ==
LOC: ANHIMG 14:41
PROVIDERS: PCP Nurse Practitioner Family; Visit Provider Family Medicine
DX: M25.552 Pain in left hip (principal)
CPT/HCPCS: 73502

== ENCOUNTER 2024-01-13 00:02 | Day surgery (SDC) | payer BC, MEDICAID, SELFPAY ==
[2024-01-04 18:10] VITALS: BMI 25.6
--- NOTE | 2024-01-04 18:41 | PC.NURSE ---
Report to the Outpatient Waiting Room, entrance under the green pavilion located off [facility], at 0600 on 01-13-24. Planned Procedure Time: 0730.? Time changes happen often and if your time is changed the preop area will call you the afternoon before. - You and your visitor will be asked to self-screen and do not enter if you have any COVID symptoms. Please call surgeon if you need to reschedule. - A mask is optional within the hospital at this time. Patients may have clear liquids (water, carbonated beverages, clear teas, apple juice) until 3 hours prior to surgery with a maximum of 20 ounces. 0430 - No food from midnight until time of surgery and no smoking - Infants may have breast milk until 4 hours before surgery, formula 6 hours prior to surgery. - Children will be allowed to drink immediately following surgery.? If applicable, please bring a bottle or sippy cup to assist with drinking. Juice, water, soda, and popsicles are readily available.? For infants on formula, please bring formula the day of surgery.? Pacifiers are allowed. Take only the following medications with a SIP of water on the morning of surgery: alprazolam DO NOT STOP ANY OF YOUR OTHER PRESCRIPTION MEDICATIONS PRIOR TO SURGERY EXCEPT THE FOLLOWING Medications to discontinue per physician: ibuprofen Date to take last dose: Per Dr. Solis Please no make-up, nail mohawk, hairspray, perfume, deodorant, or body powder the day of surgery.? No jewelry (including any body piercings) or valuables the day of surgery, leave them at home.? Please take a shower or bath the night before, or the morning of, surgery with an antibacterial soap.? Wear comfortable, loose fitting clothing.? Children are encouraged to wear pajamas. - Jewelry must be removed prior to entering the operating room.? Rings and piercings that are not removed may be cut off. - The hospital will not accept responsibility for valuables.? - Please leave all valuables, including medications, at home the day of surgery. If you are going home after surgery, a licensed trencher driver must drive you home.? - NO public transportation without another adult if you receive anesthesia. - We recommend that an adult stay with you for 24 hours following discharge. - We also recommend that you do not drive, make important decision, drink alcoholic beverages, or take any drugs that were not prescribed by your health care provider for at least 24 hours after your discharge time. For Pediatric surgeries, we recommend two adults accompany the child home. Follow any additional instructions given to you from your surgeon. Telephone instructions given to Khadra Carvajal and asked if any additional questions and then verbalized understanding. Patient advised to call surgeon office or pre surgery nurse liaison [phone] if any additional questions.
--- NOTE | 2024-01-12 17:00 | WPDANESEPP ---
Anes - Eval Pre Procedure Procedure: Operation Date: 01/13/24 07:30 Proposed Procedures p Excision Lipoma Right Forearm, Excision Lipoma Left Anterior Thigh Times Two - Tom Solis MD Date/Time: 01/12/24 17:00 Pre Op Diagnosis: lipoma right forearm and left thigh x2 Patient Data Age: 43 Gender: F Height: 1.57 m Weight: 63.5 kg Allergies Allergy/AdvReac Type Severity Reaction Status Date / Time buspirone AdvReac Intermediate FUZZY Verified 01/04/24 18:03 FEELING IN BRAIN/BODY NUMB/TWITCHING/DRY HEAVES gabapentin AdvReac Intermediate Other Verified 01/04/24 18:03 lorazepam AdvReac Intermediate FUZZY Verified 12/27/23 11:17 FEELING IN BRAIN/BODY NUMB/TWITCHING/DRY HEAVES Home Medications Medication Instructions Recorded Confirmed Type alprazolam 0.5 mg tablet 0.5 mg PO TID PRN Anxiety 02/20/19 01/04/24 History arm brace (Wrist Brace Medium) #1 ea 09/22/21 01/03/24 Rx baclofen 20 mg tablet 20 mg PO PRN PRN Pain 12/20/22 01/04/24 History mupirocin 2 % topical ointment 1 applic topical BID #15 grams 09/21/23 01/04/24 Rx ibuprofen 200 mg tablet 200 mg PO Q6H PRN pain 01/04/24 01/04/24 History omeprazole 40 mg capsule,delayed 40 mg PO DAILY 01/04/24 01/04/24 History release Patient hx anesthesia problems: other (panic attack on waking ) Family hx anesthesia problems: none Results Review: All pre-operative results and documents have been reviewed as part of the pre-operative evaluation. [facility] Past Medical History Medical History (Updated 01/12/24 @ 17:03 by Junaid Claudio Jr., MEDICAL ADMINISTRATIVE TECHNICIAN) Abnormal uterine bleeding Alcoholism in recovery Ankle sprain Anxiety Bronchitis Cellulitis of toe of right foot Chronic sinusitis Degenerative arthritis of carpometacarpal joint of thumb Ganglion cyst of volar aspect of left wrist GERD (gastroesophageal reflux disease) H/O gastroesophageal reflux (GERD) Left hand pain Left wrist pain Lumbar spondylosis Mass of left thigh Mass of right forearm (normal spontaneous vaginal delivery) x 4 Osteoarthritis of carpometacarpal joint of thumb Panic attack PTSD (post-traumatic stress disorder) Right ankle pain Scoliosis Status post hysteroscopy Subcutaneous mass of left thumb Tobacco abuse Surgical History Surgical History H/O foot surgery X 3 History of bilateral tubal ligation S/P endometrial ablation Family History Family History Other Depression Heart disease Hypertension Social History Social History (Updated 12/27/23 @ 11:31 by Rubi Erickson) Smoking packs per day: 1 Smoking cigarettes per day: 20.0 Years smoked: 25 Smoking pack-years: 25.00 Smoking status: Current every day smoker Tobacco type: cigarettes and e-cigarettes/vaping Second hand tobacco smoke exposure: Yes Additional smoking assessment comments: currently trying to quit again and smokes about 7 cigs a day Alcohol intake: never Alcohol use details: stopped drinking 2016 Substance use: never Substance use type: does not use Living arrangements: with family Gender identity (if verbalized by the patient): Female Spiritual care concerns: No Comments 12/23/22 SINUS RHYTHM VR 69 BASELINE ARTIFACT- I, III, AVR, AVL, AVF NORMAL ECG COMPARED TO ECG 06/20/2019 18:02:28 NO SIGNIFICANT CHANGES Exam Day of Procedure 01/12/24 17:00 Patient weight: overweight
--- NOTE | 2024-01-12 19:10 | WPDANESEPPF ---
Anes - Initial Pre Proc Eval Procedure: Operation Date: 01/13/24 07:30 Proposed Procedures p Excision Lipoma Right Forearm, Excision Lipoma Left Anterior Thigh Times Two - Tom Solis MD Date/Time: 01/12/24 19:10 Surgeon: Tom Solis MD Pre Op Diagnosis: lipoma right forearm and left thigh x2 Patient Data Age: 43 Gender: F Height: 1.57 m Weight: 63.5 kg Allergies Allergy/AdvReac Type Severity Reaction Status Date / Time buspirone AdvReac Intermediate FUZZY Verified 01/04/24 18:03 FEELING IN BRAIN/BODY NUMB/TWITCHING/DRY HEAVES gabapentin AdvReac Intermediate Other Verified 01/04/24 18:03 lorazepam AdvReac Intermediate FUZZY Verified 12/27/23 11:17 FEELING IN BRAIN/BODY NUMB/TWITCHING/DRY HEAVES Home Medications Medication Instructions Recorded Confirmed Type alprazolam 0.5 mg tablet 0.5 mg PO TID PRN Anxiety 02/20/19 01/04/24 History arm brace (Wrist Brace Medium) #1 ea 09/22/21 01/03/24 Rx baclofen 20 mg tablet 20 mg PO PRN PRN Pain 12/20/22 01/04/24 History mupirocin 2 % topical ointment 1 applic topical BID #15 grams 09/21/23 01/04/24 Rx ibuprofen 200 mg tablet 200 mg PO Q6H PRN pain 01/04/24 01/04/24 History omeprazole 40 mg capsule,delayed 40 mg PO DAILY 01/04/24 01/04/24 History release Patient hx anesthesia problems: other (panic attack on waking ) Family hx anesthesia problems: none Results Review: All pre-operative results and documents have been reviewed as part of the pre-operative evaluation. [facility] Past Medical History Medical History (Updated 01/12/24 @ 17:03 by Junaid Claudio Jr., TUBE SKIVER) Abnormal uterine bleeding Alcoholism in recovery Ankle sprain Anxiety Bronchitis Cellulitis of toe of right foot Chronic sinusitis Degenerative arthritis of carpometacarpal joint of thumb Ganglion cyst of volar aspect of left wrist GERD (gastroesophageal reflux disease) H/O gastroesophageal reflux (GERD) Left hand pain Left wrist pain Lumbar spondylosis Mass of left thigh Mass of right forearm (normal spontaneous vaginal delivery) x 4 Osteoarthritis of carpometacarpal joint of thumb Panic attack PTSD (post-traumatic stress disorder) Right ankle pain Scoliosis Status post hysteroscopy Subcutaneous mass of left thumb Tobacco abuse Surgical History Surgical History H/O foot surgery X 3 History of bilateral tubal ligation S/P endometrial ablation Family History Family History Other Depression Heart disease Hypertension Social History Social History (Updated 12/27/23 @ 11:31 by Rubi Erickson) Smoking packs per day: 1 Smoking cigarettes per day: 20.0 Years smoked: 25 Smoking pack-years: 25.00 Smoking status: Current every day smoker Tobacco type: cigarettes and e-cigarettes/vaping Second hand tobacco smoke exposure: Yes Additional smoking assessment comments: currently trying to quit again and smokes about 7 cigs a day Alcohol intake: never Alcohol use details: stopped drinking 2016 Substance use: never Substance use type: does not use Living arrangements: with family Gender identity (if verbalized by the patient): Female Spiritual care concerns: No Anes - Eval Final PreProcedure Day of Procedure 01/12/24 19:10 Results Review: All pre-operative results and documents have been reviewed as part of the pre-operative evaluation. Informed Consent: The patient's anesthetic plan and its attendant risks and benefits were discussed with the patient/family/POA. Questions were solicited and answers provided to the satisfaction of the patient/family/POA.
[2024-01-13 06:15] VITALS: BP 113/76; PULSE 85; RESP 16; TEMP 36.1; O2SAT 100; BMI 26.2
--- NOTE | 2024-01-13 06:57 | P.PNAN_ITS ---
Anes - Eval Final PreProcedure Day of Procedure 01/13/24 06:57 Patient weight: normal Heart: regular rate and rhythm Lungs: clear to auscultation Airway: Mallampati scale class II Neurological: alert and oriented Last oral intake: >/= 8 hours ASA classification: II Emergent: no Anesthetic plan: proceed Anesthesia type and monitoring: general GIVS and standard monitoring Results Review: All pre-operative results and documents have been reviewed as part of the pre- operative evaluation. Informed Consent: The patient's anesthetic plan and its attendant risks and benefits were discussed with the patient/family/POA. Questions were solicited and answers provided to the satisfaction of the patient/family/POA.
[2024-01-13] MEDS: LACTATED RINGERS 1,000 ML 30 ML IV CONT (07:00)
--- NOTE | 2024-01-13 07:18 | WPDHPUPDATE1 ---
History and Physical Update Update Date/Time: 01/13/24 07:18 History and Physical has been reviewed, including an updated exam of the patient. There are NO changes in the patient's condition. Risks, benefits, and alternatives have been discussed and questions answered. Patient agrees to proceed with procedure. Pt has an additional 1.5 cm right forearm lipoma that she discovered after her office visit. Will remove this lipoma as well today. Will plan on excision right forearm lipoma x 2 and excision left thigh lipoma x 2.
[2024-01-13] MEDS: ceFAZolin 2 GM/D5W 50 ML 2 GM/50 ML BAG IVPB (07:29)
[2024-01-13] MEDS: LIDO 1%/EPINEPHRINE 1:100,000 20 ML VIAL 15 ML INFILTRATE (07:51)
[2024-01-13] MEDS: BUPivacaine HCL 0.5% PF 30 ML VIAL 15 ML INFILTRATE (07:52)
--- NOTE | 2024-01-13 08:31 | W.PM.PROC2 ---
Procedure Note - Detailed Date of Procedure 01/13/24 Pre-op Diagnosis Lipoma right forearm x 2 and left thigh x2 Post-op Diagnosis Same Procedure Performed Excision lipoma right forearm x2 and left thigh x2. Surgeon Tom Solis MD Shaker Repairer CATHY Parada Anesthesia MAC and Local Indications Patient is a 43-year-old female presents with slowly enlarging subcutaneous masses. She has 2 on the right forearm and 2 on the left side she presents now for excision. Findings Patient had 2 benign-appearing lipomatous masses consistent with bone lipomas on her right forearm and 2 more on her right thigh. The lipomas on the right forearm measured 2x1cm and 1x1cm. The lipomas on the left thigh measured 1.4x1.2cm and 0.9x0.8cm. Description of Procedure After informed consent was obtained patient brought to the operating room where she was placed supine position and then IV sedation was administered by anesthesia. The right forearm from the shoulder to the hand was then prepped and draped circumferentially in the usual sterile fashion. The left anterior thigh was also prepped and draped usual sterile fashion. I then started to excise the lipomas in the volar surface of the right forearm 1st. They were both excised in a similar fashion. 1% lidocaine mixed with 0.5% Marcaine was then injected over the top of each of the subcutaneous masses. A transverse incision was then made the scalpel over each of the masses through the dermis of the skin and then electrocautery was used to dissect down to the capsule the lipomatous mass. Metzenbaum scissors were then used to spread around the capsule each lipoma and then the lipoma was delivered up the subcutaneous tissues and electrocautery was completely excised out the mass. Grossly there are both consistent with benign lipomas. They were sent to pathology for examination. The largest is lipomas measured 2x1cm. The smaller of the 2 lipomas measured 1x1cm. Both incisions were then irrigated sterile saline solution hemostasis was achieved electrocautery. Interrupted 3-0 Vicryl sutures were then used the subcutaneous tissues which was then followed by a running subcu 4-0 Monocryl suture to approximate the skin edges. Both incisions were then cleaned and then skin glue was applied. I then turned my attention to excising it is too lipomas in the left anterior thigh region. These 2 lipomas were situated very close to each other so a single incision was made to remove both lipomas. 1% lidocaine mixed with 0.5% Marcaine was injected around these to lipomas. A scalp was then used to make an incision over the 2 lipomas through the dermis of the skin. Electrocautery was then used to dissect down to the capsule lipomas and then Metzenbaum scissors was used to spread around the capsule to free them up from the surrounding subcutaneous tissue. Both lipomas were then excised electrocautery and were sent to pathology for examination. The larger of the 2 lipomas measured 1.4x1.2cm. The other lipoma measured 0.9x0.8cm. I then irrigated the incision with sterile saline solution and hemostasis was achieved electrocautery. The incision was then closed utilizing interrupted 3-0 Vicryl sutures in subcutaneous tissues. This was followed by running subcuticular 4-0 Monocryl suture to approximate the skin edges. Incision was then cleaned and skin glue was applied. The patient tolerated the procedure well no complications. All sponges, needles, and instrument counts were correct at the end procedure. EBL was _5__cc. The patient was awakened and taken to recovery in stable and satisfactory condition. Implants None Estimated Blood Loss 5 Drains No Packing No Pathology Yes (Lipomas x2 right forearm and lipomas x2 left thigh sent to pathology) Complications No immediate complications Condition Stable Disposition PACU [facility] Billing Surgery - Charge Forward: Surgery Billing
[2024-01-13 08:32] VITALS: BP 106/62; PULSE 92; RESP 14; O2SAT 100
[2024-01-13 09:00] VITALS: BP 105/66; PULSE 87
[2024-01-13 09:30] VITALS: BP 95/50; PULSE 80
== END 2024-01-13 09:42 | disposition home or self-care (01) ==
PROVIDERS: PCP Nurse Practitioner Family; Visit Provider Surgery
PROC: (CPT 25075; principal; 2024-01-13 07:30)
DX: D17.21 Benign lipomatous neoplasm of skin and subcutaneous tissue of right arm (principal); D17.24 Benign lipomatous neoplasm of skin and subcutaneous tissue of left leg; D23.61 Other benign neoplasm of skin of right upper limb, including shoulder; F17.210 Nicotine dependence, cigarettes, uncomplicated
CPT/HCPCS: 25075 ×2; 27327 ×2; 88304; A9270; J0690; J1100; J2003; J2004; J2250; J2405; J2704; J3010; J7120

== ENCOUNTER 2024-08-17 15:12 | Emergency (ER) | payer BC, MEDICAID, SELFPAY ==
[2024-08-17 15:38] VITALS: BP 111/74; PULSE 92; RESP 16; TEMP 36.9; O2SAT 99
[2024-08-17 15:51] LABS: EDSTREPNEGPOS1 Negative (Negative)
--- NOTE | 2024-08-17 16:20 | ED_ITS ---
HPI - URI/Sore Throat General Chief Complaint: Upper Respiratory Infection Stated Complaint: SORE THROAT/HURTS TO BREATHE Time Seen by Provider: 08/17/24 15:58 Source: patient, RN notes reviewed and old records reviewed Mode of arrival: ambulatory Limitations: no limitations History of Present Illness HPI Narrative: 43 year old female who presents to [facility] care with complaints of sore throat, cough which is nonproductive, sinus congestion and drainage which started on Tuesday. 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 Patient reports that she has history of strep throat and bronchitis. She states that she has been taking Dimetapp, Ibuprofen and been using Afrin nasal spray for 2 days. Patient cautioned not to use Afrin more than 3 days because can cause rebound swelling of nasal membranes. MD elicited complaint: cough and sore throat Pertinent past history: other (strep and bronchitis) Onset (ago): day(s) (2 days) Severity: moderate Able to tolerate fluids by mouth: Yes Treatments prior to arrival: ibuprofen and other (Dimetap, afrin nasal spray) Related Data Home Medications ?Medication ?Instructions ?Recorded ?Confirmed ?Last Taken ?Type alprazolam 0.5 mg tablet 0.5 mg PO TID PRN Anxiety 02/20/19 08/17/24 01/13/24 06:15 History ibuprofen 200 mg tablet 200 mg PO Q6H PRN pain 01/04/24 08/17/24 01/12/24 History omeprazole magnesium 20 mg 20 mg PO DAILY 06/01/24 08/17/24 Unknown History tablet,delayed release linaclotide 145 mcg capsule 145 mcg PO PRN constipation 08/17/24 Unknown History (Linzess) Allergies Allergy/AdvReac Type Severity Reaction Status Date / Time buspirone AdvReac Intermediate FUZZY Verified 08/17/24 15:34 FEELING IN BRAIN/BODY NUMB/TWITCHING/DRY HEAVES gabapentin AdvReac Intermediate Other Verified 08/17/24 15:34 lorazepam AdvReac Intermediate FUZZY Verified 08/17/24 15:34 FEELING IN BRAIN/BODY NUMB/TWITCHING/DRY HEAVES Review of Systems Review of Systems: CONSTITUTIONAL: Reports malaise, chills, sweats, no known fever fever. EYES: Denies visual changes, redness, or discharge. ENT: Reports rhinorrhea, congestion, sinus pain,no otalgia and positive sore throat. CARDIOVASCULAR: Denies chest pain, palpitations, or edema. RESPIRATORY: Reports cough.? Denies dyspnea. GASTROINTESTINAL: Denies abdominal pain, nausea, vomiting, diarrhea SKIN: Denies rash or itching. MUSCULOSKELETAL: Denies myalgia. NEUROLOGIC: Denies headache. All systems reviewed & are unremarkable except as noted in HPI and below PMFSH Past Medical History Medical History PTSD (post-traumatic stress disorder) Alcoholism in recovery Mass of right forearm Mass of left thigh Lumbar spondylosis Cellulitis of toe of right foot Degenerative arthritis of carpometacarpal joint of thumb Panic attack GERD (gastroesophageal reflux disease) Ganglion cyst of volar aspect of left wrist Left wrist pain Subcutaneous mass of left thumb Left hand pain Osteoarthritis of carpometacarpal joint of thumb Ankle sprain Right ankle pain Status post hysteroscopy (normal spontaneous vaginal delivery) x 4 Tobacco abuse Anxiety Abnormal uterine bleeding Chronic sinusitis Scoliosis H/O gastroesophageal reflux (GERD) Bronchitis Surgical History Surgical History S/P excision of lipoma excision R forearm and L thigh lipomas 01/13/24 Tom Solis MD S/P endometrial ablation History of bilateral tubal ligation H/O foot surgery X 3 Family History Family History Other Depression Heart disease Hypertension Social History Social History Smoking packs per day: 1 Smoking cigarettes per day: 20.0 Years smoked: 25 Smoking pack-years: 25.00 Smoking status: Current every day smoker Tobacco type: cigarettes and e-cigarettes/vaping Second hand tobacco smoke exposure: Yes Additional smoking assessment comments: currently trying to quit again and smokes about 7 cigs a day Alcohol intake: former Alcohol use details: stopped drinking 2016 Substance use: never Substance use type: does not use Do You Feel Safe in your Home?: Yes Lack of Transportation: No Lack of Food: Never True Current Housing: I Have Housing Concerned About Future Housing: No Difficulty Paying Gas/Electric Bills: No Difficulty Paying for Meds: No Currently Unemployed: No Education: High School Diploma/GED Difficulty w/ Childcare or Family Care: No Living arrangements: with family Gender identity (if verbalized by the patient): Female Spiritual care concerns: No Comments At time of signature, agree with nursing past medical, surgical, social and family history. There is no relevant family history pertinent to the presenting complaint Exam Narrative: GENERAL: Well-appearing, well-nourished, and in no acute distress. HEAD: Normocephalic EYES: PERRLA, conjunctivae clear ENT: Nares clear, turbinates edematous and erythematous, clear discharge, sinus pressure. Mucous membranes moist. TM pearly tavares with dull light reflex bilaterally; no tragal tenderness. Oropharynx erythematous without lesions. Tonsils red enlarged and with white exudate, no drooling, no hoarseness, no trismus, uvula midline.post nasal drainage NECK: Supple. No lymphadenopathy CHEST: Clear to auscultation, breath sounds equal. No wheezing, rhonchi, rales, or stridor. No respiratory distress, speaks in full sentences. dry cough, SAO2 99% on room air HEART: Regular rate and rhythm. No murmur heard. SKIN: Warm, dry, no rash. NEURO: Alert and oriented x3. PSYCH: Normal mood and affect Course Course Emergency Course: Patient is aware of diagnosis, understands and agrees to treatment plan.? Anticipatory guidance given.? Patient agrees to follow-up as directed and is aware of reasons to seek care at the emergency department. Portions of this record may have been created with voice recognition software Level of Care: Express Care Visit Vital Signs Vital signs: Vital Signs Temperature 36.9 C 08/17/24 15:38 Pulse Rate 92 08/17/24 15:38 Respiratory Rate 16 08/17/24 15:38 Blood Pressure 111/74 08/17/24 15:38 Pulse Oximetry 99 08/17/24 15:38 Temperature 36.9 C 08/17/24 15:38 Pulse Rate 92 08/17/24 15:38 Respiratory Rate 16 08/17/24 15:38 Blood Pressure 111/74 08/17/24 15:38 Pulse Oximetry 99 08/17/24 15:38 Reviewed MDM - URI/Sore Throat MDM Narrative Medical decision making narrative: Differential diagnosis considered: [place] virus, strep pharyngitis, allergic rhinitis, upper respiratory tract infection, sinusitis, rhinosinusitis, nasopharyngitis. viral pharyngitis, otitis media, otitis externa, pneumonia, bronchitis, viral cough syndrome, viral syndrome, and influenza.? Exam findings show no acute concerns or changes; patient is non-toxic appearing and is in no distress.? Patient is appropriate for outpatient treatment and follow-up. Differential Diagnosis Differential diagnosis: Likely upper respiratory infection, sinusitis, viral infection, pharyngitis and other (strep pharyngitis, exudative pharyngitis) Medical Records Attestation: I reviewed the patient's medical records. Lab Data Attestation: I reviewed the patient's lab results. Lab results narrative: strep screen negative, culture sent Labs: Lab Results 08/17/24 Range/Units 15:49 POC Grp A Strep Screen Negative (Negative) reviewed Critical Care Time Critical Care Time Critical Care Time: No Discharge Plan Discharge Clinical Impression: Exudative pharyngitis Patient Disposition: Home Condition: Stable Instructions: Antibiotic Form, Tonsillitis (ED) Additional Instructions: Tylenol or ibuprofen for any fever pain Zyrtec or Claritin or An daily . Take the entire course of antibiotics. Throw away your current toothbrush and begin using a new toothbrush in 48 hours in order to prevent re-infection. Sanitize all reusable water bottles . Do not share items with others. Salt water gargles may alleviate some of the throat discomfort. Diflucan per patient request x1 If your symptoms persist, change or worsen significantly before you can contact your personal physician then please, without delay, go to the emergency department for further evaluation. Follow-up with PCP in 7-10 days or sooner if needed Patient Language: Italian Prescriptions: New amoxicillin 400 mg/5 mL suspension for reconstitution 800 mg PO BID 10 Days Qty: 200 0RF Rx Instructions: take all doses fluconazole 150 mg tablet 150 mg PO ONCE Qty: 1 0RF Rx Instructions: as a single dose No Action Linzess 145 mcg capsule 145 mcg PO PRN (Reason: constipation) omeprazole magnesium 20 mg tablet,delayed release (DR/EC) 20 mg PO DAILY ibuprofen 200 mg Tablet 200 mg PO Q6H PRN (Reason: pain) alprazolam 0.5 mg tablet 0.5 mg PO TID PRN (Reason: Anxiety) Follow-up/Referrals: Marques,Shawnee Salcido, [employer]ISHABLE FREIGHT INSPECTOR [Primary Care Provider] - Time of Disposition: 16:28 Quality Goran Coma Scale Eyes: Open Verbal: Oriented and Alert Motor: Follows Commands [place] Coma Total Score: 15
== END 2024-08-17 16:34 | disposition home or self-care (01) ==
PROVIDERS: Emergency Provider Registered Nurse; PCP Nurse Practitioner Family
DX: J02.9 Acute pharyngitis, unspecified (principal); F17.210 Nicotine dependence, cigarettes, uncomplicated; F17.290 Nicotine dependence, other tobacco product, uncomplicated; K21.9 Gastro-esophageal reflux disease without esophagitis; F41.9 Anxiety disorder, unspecified
CPT/HCPCS: 87081; 87880; 99213; G0463

== ENCOUNTER 2024-12-24 10:40 | Emergency (ER) | payer BC, MEDICAID, SELFPAY ==
--- NOTE | 2024-12-24 10:43 | ED.URI ---
HPI - URI/Sore Throat General Chief Complaint: Nausea/Vomiting/Diarrhea Stated Complaint: Diarrhea/Fever Source: patient and RN notes reviewed Mode of arrival: ambulatory Limitations: no limitations History of Present Illness HPI Narrative: Patient is a 44-year-old female who presents to the [facility] with complaints of diarrhea the past few days. Patient states that she also had some vomiting yesterday. She was not able to keep anything down. She denies abdominal pain. States that she has been changing her diet to incorporating more fruits and vegetables. However, this weekend she ate at the [employer]. Patient also reports chills and sweats, unsure of known fever. Reports frequent nonproductive cough. Denies congestion, sore throat, chest pain, shortness of breath. 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 Related Data Home Medications ?Medication ?Instructions ?Recorded ?Confirmed ?Last Taken ?Type alprazolam 0.5 mg tablet 0.5 mg PO TID PRN Anxiety 02/20/19 12/18/24 01/13/24 06:15 History omeprazole magnesium 20 mg 20 mg PO DAILY 06/01/24 12/18/24 Unknown History tablet,delayed release linaclotide 145 mcg capsule 145 mcg PO PRN constipation 08/17/24 12/18/24 Unknown History (Linzess) escitalopram oxalate 10 mg tablet 10 mg PO DAILY 12/18/24 12/18/24 Unknown History (Lexapro) clotrimazole-betamethasone 1 applic topical 12/24/24 Unknown History %-0.05 % topical cream mupirocin 2 % topical ointment topical 12/24/24 Unknown History omeprazole 40 mg capsule,delayed mg 12/24/24 Unknown History release Allergies Allergy/AdvReac Type Severity Reaction Status Date / Time buspirone AdvReac Intermediate FUZZY Verified 12/24/24 10:45 FEELING IN BRAIN/BODY NUMB/TWITCHING/DRY HEAVES gabapentin AdvReac Intermediate Other Verified 12/24/24 10:45 lorazepam AdvReac Intermediate FUZZY Verified 12/24/24 10:45 FEELING IN BRAIN/BODY NUMB/TWITCHING/DRY HEAVES Review of Systems Review of Systems: CONSTITUTIONAL: Denies fever, reports chills and sweats. EYES: Denies visual changes, redness, or discharge. ENT: Denies otalgia and sore throat CARDIOVASCULAR: Denies chest pain, palpitations, or edema. RESPIRATORY: Reports cough but denies dyspnea. GASTROINTESTINAL: Denies abdominal pain, but reports diarrhea and vomiting. GENITOURINARY: Denies dysuria or hematuria. SKIN: Denies rash or itching. MUSCULOSKELETAL: Denies back pain, joint pain, or myalgia. NEUROLOGIC: Denies headache, numbness, or weakness. Pertinent positives per HPI. [facility] Past Medical History Medical History PTSD (post-traumatic stress disorder) Alcoholism in recovery Mass of right forearm Mass of left thigh Lumbar spondylosis Cellulitis of toe of right foot Degenerative arthritis of carpometacarpal joint of thumb Panic attack GERD (gastroesophageal reflux disease) Ganglion cyst of volar aspect of left wrist Left wrist pain Subcutaneous mass of left thumb Left hand pain Osteoarthritis of carpometacarpal joint of thumb Ankle sprain Right ankle pain Status post hysteroscopy (normal spontaneous vaginal delivery) x 4 Tobacco abuse Anxiety Abnormal uterine bleeding Chronic sinusitis Scoliosis H/O gastroesophageal reflux (GERD) Bronchitis Surgical History Surgical History S/P excision of lipoma excision R forearm and L thigh lipomas 01/13/24 Tom Solis MD S/P endometrial ablation History of bilateral tubal ligation H/O foot surgery X 3 Family History Family History Other Depression Heart disease Hypertension Social History Social History Smoking packs per day: 1 Smoking cigarettes per day: 20.0 Years smoked: 25 Smoking pack-years: 25.00 Smoking status: Current every day smoker Tobacco type: cigarettes and e-cigarettes/vaping Second hand tobacco smoke exposure: Yes Additional smoking assessment comments: currently trying to quit again and smokes about 7 cigs a day Alcohol intake: former Alcohol use details: stopped drinking 2016 Substance use: never Substance use type: does not use Do You Feel Safe in your Home?: Yes Lack of Transportation: No Lack of Food: Never True Current Housing: I Have Housing Concerned About Future Housing: No Difficulty Paying Gas/Electric Bills: No Difficulty Paying for Meds: No Currently Unemployed: No Education: High School Diploma/GED Difficulty w/ Childcare or Family Care: No Living arrangements: with family Gender identity (if verbalized by the patient): Female Spiritual care concerns: No Comments At the time of my signature, I reviewed and agree with the nursing past medical, surgical, social, and family history. There is no relevant family history pertinent to the patient complaint. Exam Narrative: GENERAL: This is a well-nourished, well-developed patient, in no apparent distress. HEAD: normocephalic, atraumatic. EYES: Sclera clear/white. Vision is grossly intact. EARS: External ears normal. Hearing grossly intact. NOSE: External nose normal with no obvious nasal discharge, nares without redness, no rhinorrhea. THROAT: Mucous membranes moist, oropharyngeal erythema without exudate. NECK: Neck supple, non-tender without lymphadenopathy, masses or thyromegaly. CARDIOVASCULAR: Regular rate and rhythm without murmurs, gallops, or rubs. RESPIRATORY: Clear to auscultation. Breath sounds equal bilaterally. No wheezes, rales, or rhonchi. GASTROINTESTINAL: Abdomen soft, non-tender, nondistended. Bowel sounds are active. No hepato-splenomegaly, or palpable masses. No guarding. SKIN: warm, intact with no suspicious lesions or rash, good texture and turgor. NEURO: awake, alert, and oriented to person, place and time. There were no obvious focal neurologic abnormalities. Course Course Level of Care: Express Care Visit Vital Signs Vital signs: Vital Signs Temperature 97.5 F L 12/24/24 10:44 Pulse Rate 72 12/24/24 10:44 Respiratory Rate 16 12/24/24 10:44 Blood Pressure 112/75 12/24/24 10:44 Pulse Oximetry 99 12/24/24 10:44 Oxygen Delivery Room Air 12/24/24 10:44 Temperature 97.5 F L 12/24/24 10:44 Pulse Rate 72 12/24/24 10:44 Respiratory Rate 16 12/24/24 10:44 Blood Pressure 112/75 12/24/24 10:44 Pulse Oximetry 99 12/24/24 10:44 Oxygen Delivery Room Air 12/24/24 10:44 Reviewed MDM - URI/Sore Throat MDM Narrative Medical decision making narrative: You've been diagnosed with a viral illness that would not require antibiotics at this time. Take the Zofran ODT at home as directed for nausea and get plenty of fluids. You may take Imodium for diarrhea. If you would like to eat food, you should follow the BRAT diet (bananas, rice, applesauce, and toast, or things of the like). If you develop any new or worsening symptoms, you should go to the emergency dept without hesitation. Follow up with your sound recordist in 2-5 days. Differential Diagnosis Differential diagnosis: Likely upper respiratory infection, viral infection, influenza and other (viral gastroenteritis, strep) Lab Data Attestation: I reviewed the patient's lab results. Labs: Lab Results 12/24/24 Range/Units 10:52 POC Grp A Strep Screen Negative (Negative) Critical Care Time Critical Care Time Critical Care Time: No Discharge Plan Discharge Clinical Impression: Viral gastroenteritis Patient Disposition: Home Condition: Stable Instructions: Gastroenteritis (ED), Acute Nausea and Vomiting (ED) Additional Instructions: You've been diagnosed with a viral illness that would not require antibiotics at this time. Take the Zofran ODT at home as directed for nausea and get plenty of fluids. You may take Imodium for diarrhea. If you would like to eat food, you should follow the BRAT diet (bananas, rice, applesauce, and toast, or things of the like). If you develop any new or worsening symptoms, you should go to the emergency dept without hesitation. Follow up with your sound recordist in 2-5 days. Patient Language: B[place]an Prescriptions: New ondansetron 4 mg tablet,disintegrating 4 mg PO Q8H PRN (Reason: nausea and vomiting) Qty: 20 0RF No Action Linzess 145 mcg capsule 145 mcg PO PRN (Reason: constipation) omeprazole 40 mg capsule,delayed release(DR/EC) clotrimazole-betamethasone 1-0.05 % cream TOPICAL mupirocin 2 % ointment TOPICAL omeprazole magnesium 20 mg tablet,delayed release (DR/EC) 20 mg PO DAILY escitalopram oxalate [Lexapro] 10 mg tablet 10 mg PO DAILY alprazolam 0.5 mg tablet 0.5 mg PO TID PRN (Reason: Anxiety) Follow-up/Referrals: PHYSICIAN,AIRCRAFT TOOL MAKER [Primary Care Provider, Internal Medicine] Stand Alone Forms: Work/School Release IP Time of Disposition: 11:17
[2024-12-24 10:44] VITALS: BP 112/75; PULSE 72; RESP 16; TEMP 36.4; O2SAT 99
[2024-12-24 11:05] LABS: EDSTREPNEGPOS1 Negative (Negative)
== END 2024-12-24 11:20 | disposition home or self-care (01) ==
PROVIDERS: Emergency Provider Nurse Practitioner
DX: A08.4 Viral intestinal infection, unspecified (principal); F17.210 Nicotine dependence, cigarettes, uncomplicated; F17.290 Nicotine dependence, other tobacco product, uncomplicated; K21.9 Gastro-esophageal reflux disease without esophagitis; F41.9 Anxiety disorder, unspecified
CPT/HCPCS: 87081; 87880; 99213; G0463